=== PATIENT | male | born 1950 | race Caucasian/White ===

== ENCOUNTER 2020-04-04 11:52 | Inpatient (IN) | payer MEDICARE ==
[2020-04-04 14:32] VITALS: BMI 27.3
[2020-04-04] MEDS ORDERED: Communication Order-Pharmacy FS SCH (14:43)
--- NOTE | 2020-04-04 17:03 | RAD ---
Chest one view HISTORY: CHF. Chest pain. COMPARISON: 03/03/2020. FINDINGS: Cardiac silhouette is magnified and upper limits of normal in size. Pulmonary vasculature i s unremarkable. Mediastinum is midline with extensive overlying electronic monitoring equipment. No lobar consolidation or evidence of pneumothorax. Degenerative changes of the shoulders. IMPRESSION : No acute abnormalities are demonstrated.
--- NOTE | 2020-04-04 20:27 | CON ---
DATE OF CONSULTATION: HISTORY OF PRESENT ILLNESS: This is a 70-year-old gentleman with a history of hypertension followed by dr umana who began having some paroxysmal nocturnal dyspnea around Samson time and then noticed some swelling in his legs. He was seen by Dr. Umana. However, cardiac echo was done showing an ejection fraction of 10% to 15%. He has evaluation at that time proceeded after he had some Entresto and Coreg started as well as Lasix. He underwent cardiac catheterization today showing severe three-vessel coronary artery disease with an LVEDP of 9. The ejection fraction appeared to be in the 10% to 15% as well on catheterization with some basal wall function, but otherwise in no particular function in the remainder of the ventricle. PAST MEDICAL HISTORY: Negative for diabetes. Negative for dyslipidemia. He has no smoking history. He does have a family history of heart disease. PAST SURGICAL HISTORY: Includes bilateral chest tubes for pneumothoraces following an accident as a young man. 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 PHYSICAL EXAMINATION: GENERAL: He is alert, cooperative gentleman, heart rate 60 with a blood pressure of 100/60. NECK: Neck examination is without carotid bruits. LUNGS: Clear to auscultation anteriorly. CARDIAC: Reveals distant sounds with no murmurs. ABDOMEN: Soft and nontender. EXTREMITIES: He has trace ankle edema on the left with no pitting edema. He has palpable pedal pulses. PLAN: At this time, after reviewing his cardiac catheterization, he has potential targets of an LAD, ramus, OM and left PDA all of which have critical disease. The case was discussed with Dr. Cho. I have also had discussion with the patient, his , and we will proceed with intervention on Tuesday. Job ID: [id number] [facility]
[2020-04-04] MEDS: Carvedilol 3.125 MG TAB PO SCH (21:14)
[2020-04-05 07:55] LABS: ALT (SGPT) 8 U/L (8-55); AST (SGOT) 12 U/L (5-34); Albumin 3.4 g/dL (3.4-4.8); Alkaline Phosphatase 79 U/L (40-110); Bilirubin, Direct 0.3 mg/dL (0.1-0.3); Bilirubin, Total 0.8 mg/dL (0.2-1.2); Cardiac Risk 4.8 (Less than 4.5); Cholesterol 168 mg/dl (< 200 Desired); HDL Cholesterol 35 mg/dL (>60 Neg Risk); LDL Cholesterol, Calculated 115 mg/dL; Protein, Total 6.5 g/dL (5.8-8.1); Triglycerides 91 mg/dL (Less than 150)
[2020-04-05 08:03] LABS: Hemoglobin A1c 5.2 % (4.0-6.0)
[2020-04-05] MEDS: Aspirin 81 mg Enteric Coated Tablet PO SCH (08:32)
[2020-04-05] MEDS: Carvedilol 3.125 MG TAB PO SCH ×2 (08:34→21:32)
[2020-04-05] MEDS: Furosemide 40 MG TAB PO SCH (08:34)
[2020-04-05] MEDS: Potassium Chloride 10 MEQ TAB PO SCH (08:34)
[2020-04-05] MEDS ORDERED: FLU VACC QS2020-21(65YR UP)/PF 240 MCG/0.7 ML SYRINGE IM ONE (09:00)
--- NOTE | 2020-04-05 09:38 | PDOC.CONS ---
- Consultation Encounter Date: 04/05/20 The patient is a 70-year-old male who was recently diagnosed with heart failure with reduced action fraction. His EF was determined to be 10 to 15%. The patient's symptoms of dyspnea on exertion, orthopnea, and PND started late last year. He recently underwent cardiac catheterization which revealed severe triple- vessel disease. He is admitted to the hospital for scheduled CABG on Tuesday. This morning the patient is sitting in a chair and does not appear to be in any distress. He denied any chest pain, palpitations, shortness of breath, or dizziness. He was able to ambulate inside his room without difficulty. Extended Physical Exam - Physical Exam General Appearance: alert, no acute distress Eye: Bilateral: EOMI Neck: other (Supple) Respiratory: breath sounds clear CVS: regular rate & rhythm. negative: gallop, murmur, friction rub Skin: negative: cyanosis, pallor Extremities: normal inspection, normal ROM Neuro/Psych: oriented x3. negative: facial droop, weakness Hosp A/P (1) Coronary artery disease Code(s): I25.10 - ATHSCL HEART DISEASE OF [place] CORONARY ARTERY W/O ANG PCTRS Status: Acute (2) Heart failure with reduced ejection fraction Code(s): I50.20 - UNSPECIFIED SYSTOLIC (CONGESTIVE) HEART FAILURE Status: Acute - Plan Start aspirin 81 mg orally daily and atorvastatin 40 mg orally nightly. Nitroglycerin sublingual as needed for chest pain. Continue Coreg and Entresto. Enoxaparin for DVT prophylaxis. Check LFTs, hemoglobin A1c and lipid profile.
[2020-04-05] MEDS ORDERED: Nitroglycerin 0.4 MG TAB (25 Tab Bottle) SL PRN (09:48)
[2020-04-05] MEDS: Atorvastatin Calcium 40 MG TAB PO SCH (21:32)
[2020-04-06] MEDS: Potassium Chloride 10 MEQ TAB PO SCH (07:53)
[2020-04-06] MEDS: Carvedilol 3.125 MG TAB PO SCH ×2 (07:54→20:49)
[2020-04-06] MEDS: Aspirin 81 mg Enteric Coated Tablet PO SCH (07:54)
[2020-04-06] MEDS: Furosemide 40 MG TAB PO SCH (07:54)
--- NOTE | 2020-04-06 09:45 | PDOC.HOSPP ---
- Subjective Encounter Date: 04/06/20 Subjective: The patient denies chest pain, shortness of breath, palpitations, or syncope. - Objective Vital Signs & Weight: Vital Signs (12 hours) Temp Pulse Resp BP Pulse Ox 04/06/20 07:51 98.3 F 79 15 122/77 96 04/06/20 07:30 95 04/06/20 04:00 97.9 F 61 15 112/65 96 Weight Weight 205 lb I&O: 04/05/20 04/06/20 04/07/20 06:59 06:59 06:59 Intake Total 850 1200 240 Output Total 2400 425 1450 Balance -1550 775 -1210 Hospitalist ROS - Medication Medications: Active Medications Generic Name Dose Route Start Last Admin Trade Name Nuris PRN Reason Stop Dose Admin Aspirin 81 mg 04/05/20 09:00 04/06/20 07:54 Aspirin 81 Mg Enteric Coated Tablet PO 81 mg DAILY ALVAREZ Administration Atorvastatin Calcium 40 mg 04/05/20 21:00 04/05/20 21:32 Atorvastatin Calcium 40 Mg Tab PO Not Given HS ALVAREZ Carvedilol 3.125 mg 04/04/20 21:00 04/06/20 07:54 Carvedilol 3.125 Mg Tab PO 3.125 mg BID ALVAREZ Administration Furosemide 40 mg 04/05/20 09:00 04/06/20 07:54 Furosemide 40 Mg Tab PO 40 mg DAILY ALVAREZ Administration Potassium Chloride 10 meq 04/05/20 09:00 04/06/20 07:53 Potassium Chloride 10 Meq Tab PO 10 meq DAILY ALVAREZ Administration Sacubitril/Valsartan 0.5 tab 04/04/20 21:00 04/06/20 07:53 Sacubitril 24mg/Valsartan 26mg Tab PO 0.5 tab BID ALVAREZ Administration Hospitalist Exam Vitals: Vital Signs (12 hours) Temp Pulse Resp BP Pulse Ox 04/06/20 07:51 98.3 F 79 15 122/77 96 04/06/20 07:30 95 04/06/20 04:00 97.9 F 61 15 112/65 96 Weight Weight 205 lb General Appearance: awake alert ENT: normocephalic atraumatic Neck: supple Heart: RRR Respiratory: normal chest expansion, no tachypnea Extremities: no cyanosis, no clubbing Hosp A/P (1) Coronary artery disease Code(s): I25.10 - ATHSCL HEART DISEASE OF [place] CORONARY ARTERY W/O ANG PCTRS Status: Acute (2) Heart failure with reduced ejection fraction Code(s): I50.20 - UNSPECIFIED SYSTOLIC (CONGESTIVE) HEART FAILURE Status: Acute - Plan Continue aspirin 81 mg orally daily and atorvastatin 40 mg orally nightly. Nitroglycerin sublingual as needed for chest pain. Continue Coreg and Entresto. Enoxaparin for DVT prophylaxis. LFTs within normal limits. LDL cholesterol is above target. I have explained indication for atorvastatin to the patient.
--- NOTE | 2020-04-06 12:20 | PRG ---
DATE OF SERVICE: 04/06/2020 The patient has no complaints in the past 24 hours. His vital signs are stable on Entresto and Coreg with the blood pressure in the 120 range and the heart rate in the 70s. He reports no chest pain or dyspnea. He did refuse his Lipitor last night stating that no one discussed medicine changes with him. I have reviewed his current cardiac echo, which was read by Dr. Buchanan, and the ejection fraction appears to be about 20%, which is slightly better than what I would have guessed from looking at his cardiac catheterization. Plan tomorrow is 4-vessel bypass grafting if weather permitting and allowing all involved crew members to make it to the hospital, and I have discussed this with him. Job ID: [id number]
[2020-04-06] MEDS: Atorvastatin Calcium 40 MG TAB PO SCH (20:49)
[2020-04-07] MEDS ORDERED: Carvedilol 3.125 MG TAB ONE (05:42)
[2020-04-07] MEDS ORDERED: Albumin 5% 500 ML ONE (07:03)
[2020-04-07] MEDS ORDERED: Vecuronium 10 MG VIAL ONE ×3 (09:55→14:41)
[2020-04-07] MEDS ORDERED: Midazolam HCl 5 mg/5 ml Vial ONE (09:55)
[2020-04-07] MEDS ORDERED: Fentanyl 100 MCG/2 ML VIAL ONE ×2 (09:55→16:17)
[2020-04-07] MEDS ORDERED: Midazolam HCl 2 mg/2 ml Vial ONE (09:55)
[2020-04-07] MEDS ORDERED: Dexmedetomidine 200 MCG/2 ML VIAL ONE (09:55)
[2020-04-07] MEDS: Aspirin 81 mg Enteric Coated Tablet PO SCH (10:14)
[2020-04-07] MEDS: Furosemide 40 MG TAB PO SCH (10:14)
[2020-04-07] MEDS: Potassium Chloride 10 MEQ TAB PO SCH (10:14)
[2020-04-07] MEDS: Carvedilol 3.125 MG TAB PO SCH (10:15)
[2020-04-07] MEDS ORDERED: Levofloxacin 500 mg/D5W 100 ml Premix Bag ONE (10:49)
[2020-04-07] MEDS ORDERED: Clindamycin/D5W 900 mg/50 ml Premix Bag ONE (10:49)
[2020-04-07] MEDS ORDERED: Milrinone 10 MG/10 ML VIAL ONE (10:57)
--- NOTE | 2020-04-07 11:02 | PDOC.HOSPP ---
- Subjective Encounter Date: 04/07/20 Subjective: C/O some chest discomfort - Objective Vital Signs & Weight: Vital Signs (12 hours) Temp Pulse Resp BP Pulse Ox 04/07/20 08:00 97.9 F 67 16 117/74 95 Weight Weight 205 lb I&O: 04/06/20 04/07/20 04/08/20 06:59 06:59 06:59 Intake Total 1200 1440 Output Total 425 1450 Balance 775 -10 Hospitalist ROS - Medication Medications: Active Medications Generic Name Dose Route Start Last Admin Trade Name Freq PRN Reason Stop Dose Admin Aspirin 81 mg 04/05/20 09:00 04/07/20 10:14 Aspirin 81 Mg Enteric Coated Tablet PO Not Given DAILY ALVAREZ Atorvastatin Calcium 40 mg 04/05/20 21:00 04/06/20 20:49 Atorvastatin Calcium 40 Mg Tab PO 40 mg HS ALVAREZ Administration Carvedilol 3.125 mg 04/04/20 21:00 04/06/20 20:49 Carvedilol 3.125 Mg Tab PO 3.125 mg BID ALVAREZ Administration Furosemide 40 mg 04/05/20 09:00 04/07/20 10:14 Furosemide 40 Mg Tab PO Not Given DAILY [facility] Potassium Chloride 10 meq 04/05/20 09:00 04/07/20 10:14 Potassium Chloride 10 Meq Tab PO Not Given DAILY ALVAREZ Sacubitril/Valsartan 0.5 tab 04/04/20 21:00 04/07/20 10:14 Sacubitril 24mg/Valsartan 26mg Tab PO Not Given BID [facility] Hospitalist Exam Vitals: Vital Signs (12 hours) Temp Pulse Resp BP Pulse Ox 04/07/20 08:00 97.9 F 67 16 117/74 95 Weight Weight 205 lb General Appearance: awake alert ENT: normocephalic atraumatic Neck: supple Respiratory: normal chest expansion, no tachypnea Extremities: no cyanosis, no clubbing Hosp A/P (1) Coronary artery disease Code(s): I25.10 - ATHSCL HEART DISEASE OF [place] CORONARY ARTERY W/O ANG PCTRS Status: Acute (2) Heart failure with reduced ejection fraction Code(s): I50.20 - UNSPECIFIED SYSTOLIC (CONGESTIVE) HEART FAILURE Status: Acute - Plan Continue aspirin 81 mg orally daily and atorvastatin 40 mg orally nightly. Nitroglycerin sublingual as needed for chest pain. Continue Coreg and Entresto. Enoxaparin for DVT prophylaxis. LFTs within normal limits. LDL cholesterol is above target. I have explained indication for atorvastatin to the patient. Plan for CABG today.
[2020-04-07] MEDS ORDERED: PHENYLEPHRINE-NS 100 MCG/ML 10 ML SYRINGE ONE ×2 (12:55→14:41)
[2020-04-07] MEDS ORDERED: Calcium Chloride 1 GM/10 ML Abboject SYRINGE ONE (14:41)
[2020-04-07] MEDS ORDERED: Mannitol 12.5 GM/50 ML ONE (14:41)
[2020-04-07] MEDS ORDERED: Norepinephrine 4 MG/4 ML VIAL ONE (14:41)
[2020-04-07] MEDS ORDERED: Nitroglycerin 50 MG/250 ML BOT ONE (14:41)
[2020-04-07] MEDS ORDERED: Lidocaine 1% PF 5 ML VIAL ONE (14:41)
[2020-04-07] MEDS ORDERED: Ketorolac Tromethamine 30 MG/ML VIAL ONE (14:41)
[2020-04-07] MEDS ORDERED: Thrombin 5000 UNITS/5 ML VIAL ONE (14:41)
[2020-04-07] MEDS ORDERED: Cardioplegic Soln 1,000 ML BAG ONE (14:41)
[2020-04-07] MEDS ORDERED: Dexamethasone 20 MG/5 ML VIAL ONE (14:41)
[2020-04-07] MEDS ORDERED: Heparin 30,000 units/30 ml VIAL ONE (14:41)
[2020-04-07] MEDS ORDERED: Aminocaproic Acid 5 GM/20 ML VIAL ONE (14:41)
[2020-04-07] MEDS ORDERED: Ondansetron PF 4 MG/2 ML Vial ONE (14:41)
[2020-04-07] MEDS ORDERED: Papaverine 60 MG/2 ML VIAL ONE (14:41)
[2020-04-07] MEDS ORDERED: Glycopyrrolate 0.2 MG/ML 5 ML SYRINGE ONE (14:41)
[2020-04-07] MEDS ORDERED: Heparin 5,000 UNITS/ML VIAL ONE (14:41)
[2020-04-07] MEDS ORDERED: Sodium Bicarb 50 MEQ/50 ML Abboject 8.4% SYRINGE ONE (14:41)
[2020-04-07] MEDS ORDERED: Magnesium Sulfate 1 GM/2 ML VIAL ONE (14:41)
[2020-04-07] MEDS ORDERED: Lidocaine 2% PF 100 mg/5 ml Syringe ONE (14:41)
[2020-04-07] MEDS ORDERED: Potassium Chloride 60 MEQ/30 ML VIAL ONE (14:41)
[2020-04-07] MEDS ORDERED: Dextrose 5% in Water 1,000 ML IV PRN ×2 (15:00→16:45)
[2020-04-07] MEDS ORDERED: HUMULIN R 100 UNITS in Sodium Chloride 0.9% 100 ML IVPB SCH ×2 (15:00→16:45)
[2020-04-07] MEDS ORDERED: Dextrose 50% Abboject 50 ML SYRINGE SLOW IVP PRN ×2 (15:00→16:45)
[2020-04-07] MEDS ORDERED: Insulin Regular 300 UNITS/3 ML VIAL SC PRN (15:00)
[2020-04-07] MEDS ORDERED: hydrALAZINE 20 MG/ML VIAL SLOW IVP PRN ×2 (15:01→15:48)
[2020-04-07] MEDS ORDERED: Potassium Chloride 20 MEQ in Premix Bag 1 BAG IVPB PRN (15:03)
[2020-04-07] MEDS ORDERED: Ondansetron PF 4 MG/2 ML Vial IVP PRN ×2 (15:04→15:48)
[2020-04-07] MEDS ORDERED: Post-Op Insulin Drip Protocol IVPB ONE (15:48)
[2020-04-07] MEDS ORDERED: Mag-Al 1200 mg/1200 mg/30 ML UDCUP PO PRN (15:48)
[2020-04-07] MEDS ORDERED: niCARdipine 25 MG in Sodium Chloride 0.9% 250 ML 250 ML IVPB PRN (15:48)
[2020-04-07] MEDS ORDERED: Fentanyl 100 MCG/2 ML VIAL SLOW IVP PRN (15:48)
[2020-04-07] MEDS ORDERED: Promethazine HCl 25 MG/ML VIAL SLOW IVP PRN (15:48)
[2020-04-07] MEDS ORDERED: Morphine 2 MG/ML VIAL SLOW IVP PRN (15:48)
[2020-04-07] MEDS ORDERED: Hetastarch 6% 500 ML 500 ML IVPB PRN (15:48)
[2020-04-07] MEDS ORDERED: Nitroglycerin 50 MG/250 ML BOT 250 ML IVPB PRN (15:48)
[2020-04-07] MEDS ORDERED: Bisacodyl 5 MG TAB PO PRN (15:48)
[2020-04-07] MEDS ORDERED: Bisacodyl 10 MG SUPP PR PRN (15:48)
[2020-04-07] MEDS ORDERED: Guaifenesin DM 100-10/5 ML UDCUP PO PRN (15:48)
[2020-04-07] MEDS: Lactated Ringer's 1,000 ML IV SCH (15:50)
[2020-04-07 16:16] LABS: #Eosinphils 0.1 thou/uL (0.0-0.7); #Lymphocytes 0.7 thou/uL (1.20-3.40); #Neutrophils 15.7 thou/uL (1.40-6.50); %Basophils 0.1 % (0.0-1.0); %Eosinophils 0.7 % (0.0-10.0); %Lymphocytes 4.1 % (21.0-51.0); %Monocytes 5.7 % (0.0-10.0); %Neutrophils 89.4 % (42.0-75.0); Anion Gap 15 mmol/L (10-20); BUN (Urea Nitrogen) 27 mg/dL (8.4-25.7); Calc. Creatinine Clearance 70 mL/min (70-130); Calcium 8.1 mg/dL (7.8-10.44); Carbon Dioxide 21 mmol/L (23-31); Chloride 110 mmol/L (98-107); Glucose 168 mg/dL (83-110); Hemoglobin 12.5 g/dL (14.0-18.0); Mean Corpuscular HGB CONC 33.9 g/dL (32.0-36.0); Mean Corpuscular Hemoglobin 30.6 pg (27.0-31.0); Mean Corpuscular Volume 90.4 fL (78.0-98.0); Mean Platelet Volume 8.7 fL (7.4-10.4); Platelet Count 205 thou/uL (130-400); Potassium 4.4 mmol/L (3.5-5.1); RBC Distribution Width 12.1 % (11.5-14.5); Red Blood Cell (RBC) Count 4.07 mill/uL (4.70-6.10); Sodium 142 mmol/L (136-145); White Blood Cell (WBC) Count 17.5 thou/uL (4.8-10.8)
[2020-04-07] MEDS: Fentanyl 100 MCG/2 ML VIAL SLOW IVP PRN ×3 (16:18→19:57)
[2020-04-07 16:43] LABS: INR-International Normal Ratio 1.3; PTT 32.2 sec (22.9-36.1); Prothrombin Time 16.6 sec (12.0-14.7)
[2020-04-07] MEDS ORDERED: Magnesium 2 GM/50 ML 2 GM in Premix Bag 1 BAG IVPB SCH (16:45)
[2020-04-07] MEDS: Insulin Regular 300 UNITS/3 ML VIAL SC PRN ×3 (17:13→23:38)
[2020-04-07 17:14] LABS: Actual Bicarbonate (HCO3a) 21.7 mEq/L (22-28); Base Excess (BEa) -3.3 mEq/L (-2.0 to +3.0); CO2 Tension 38.9 mmHg (35.0-45.0); Calcium, Ionized (arterial) 1.13 mmol/L (1.12-1.30); Carboxyhemoglobin (COHb) 0.2 gm% (0.0-3.0); Hemoglobin (Hb) 12.4 g/dL (14.0-18.0); O2 Tension (PaO2), arterial 99.4 mmHg (> 70.0); Potassium - ABG Lab 4.22 mmol/L (3.70-5.30); pH, Arterial 7.37 (7.35-7.45)
[2020-04-07] MEDS: Ketorolac Tromethamine 30 MG/ML VIAL IVP SCH ×2 (17:15→23:03)
[2020-04-07] MEDS: Clindamycin/D5W 900 MG in Premix Bag 1 BAG IVPB SCH ×2 (17:15→23:02)
[2020-04-07 17:27] LABS: ALV-art Gradient 137.175 mmHg (0-20); Puncture Site Arterial Line
[2020-04-07] MEDS ORDERED: Milrinone Lactate/D5W 20 MG in Premix Bag 1 BAG IV SCH (18:00)
--- NOTE | 2020-04-07 18:06 | CON ---
DATE OF CONSULTATION: HISTORY OF PRESENT ILLNESS: Jordi Philip is a 70-year-old white male, who started to have episodes of paroxysmal nocturnal dyspnea around Samson time, as well as some peripheral edema. Echo showed ejection fraction of 10% to 15%. He was placed on carvedilol, Entresto, and furosemide. He then underwent cardiac catheterization which revealed severe three-vessel coronary artery disease. He is transferred from [facility] to [facility] for CABG. That was performed today and he is postop in the ICU at the present time. He is extubated and alert but drowsy. He apparently had CABG x4, however, I do not see any operative notes as to the location of bypasses. At the present time, the patient does complain of some chest discomfort. PAST MEDICAL HISTORY: Hypertension. OPERATIONS: Bilateral chest tubes for pneumothoraces after an accident as a young man. MEDICATIONS: 1. Entresto 24-26 1/2 tablet b.i.d. 2. Carvedilol 3.125 b.i.d. 3. Furosemide 40 daily. 4. Potassium 10 mEq daily. ALLERGIES: PENICILLIN. SOCIAL HISTORY: He does not smoke. 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 REVIEW OF SYSTEMS: The patient too drowsy to go through that at the present time. PHYSICAL EXAMINATION: VITAL SIGNS: Blood pressure 117/74, pulse 67. HEENT: PERRL. NECK: Supple. CHEST: Clear. CARDIAC: S1 and S2 normal without any S3, S4, or murmurs. ABDOMEN: Normal bowel sounds without tenderness or organomegaly. EXTREMITIES: Revealed trace pretibial edema. NEUROLOGICAL: Grossly intact except for the lethargy. LABORATORY DATA: Hemoglobin 12.5, hematocrit 36.8, white count 74562, platelets 205,000. PH 7.37, pCO2 of 38.9, PO2 of 99.4. Sodium 142, potassium 4.4, chloride 110, carbon dioxide 21, BUN 27, and creatinine 1.28. Blood test earlier in [place] revealed a cholesterol of 168, triglycerides 91, HDL 35, LDL 115. IMPRESSION: 1. Status post coronary artery bypass grafting x4. 2. Ischemic cardiomyopathy with ejection fraction of approximately 20%. 3. Hypertension. 4. Hypercholesterolemia. PLAN: The patient will need to be started on a statin drug. Also his carvedilol and Entresto will be gradually resumed as his blood pressure will allow. Job ID: [id number] [facility]
--- NOTE | 2020-04-07 18:51 | RAD ---
SUPINE PORTABLE CHEST: HISTORY: Postoperative sternotomy. COMPARISON: 04/04/2020 FINDINGS: Postop sternotomy changes are now noted. Sternotomy wires and drainage catheters are seen. A central line overlies the SVC. The lungs show opacification in the left lung base, consistent with left basil ar atelectasis or consolidation. The lung kim otherwise appear well aerated and clear. IMPRESSION: Postoperative changes. Atelectasis or consolidation in the left lung base. POS: AGW
[2020-04-07] MEDS: Famotidine/PF 20 mg/2ml Vial SLOW IVP SCH (19:57)
[2020-04-07] MEDS: Norepinephrine 8 MG/0.9% NS 250 ML IVPB PRN (20:54)
[2020-04-07 21:47] LABS: Hemoglobin 11.8 g/dL (14.0-18.0)
[2020-04-07 21:53] LABS: Potassium 4.2 mmol/L (3.5-5.1)
[2020-04-08] MEDS: Acetaminophen 325 MG TAB PO PRN (02:12)
[2020-04-08] MEDS: HYDROcodone/Acetaminophen 5/325 mg Tablet PO PRN ×4 (02:13→20:11)
[2020-04-08] MEDS: Fentanyl 100 MCG/2 ML VIAL SLOW IVP PRN ×2 (03:05→06:17)
[2020-04-08] MEDS: Insulin Regular 300 UNITS/3 ML VIAL SC PRN ×4 (03:41→20:40)
[2020-04-08 04:32] LABS: #Lymphocytes 0.8 thou/uL (1.20-3.40); #Monocytes 1.5 thou/uL (0.11-0.59); #Neutrophils 13.1 thou/uL (1.40-6.50); %Lymphocytes 4.9 % (21.0-51.0); Hemoglobin 10.9 g/dL (14.0-18.0); Mean Corpuscular HGB CONC 33.7 g/dL (32.0-36.0); Mean Corpuscular Hemoglobin 29.8 pg (27.0-31.0); Mean Corpuscular Volume 88.5 fL (78.0-98.0); Mean Platelet Volume 8.9 fL (7.4-10.4); Platelet Count 236 thou/uL (130-400); Red Blood Cell (RBC) Count 3.65 mill/uL (4.70-6.10); White Blood Cell (WBC) Count 15.4 thou/uL (4.8-10.8)
[2020-04-08 04:51] LABS: Anion Gap 14 mmol/L (10-20); BUN (Urea Nitrogen) 31 mg/dL (8.4-25.7); Calc. Creatinine Clearance 56 mL/min (70-130); Calcium 8.4 mg/dL (7.8-10.44); Carbon Dioxide 21 mmol/L (23-31); Chloride 110 mmol/L (98-107); Glucose 134 mg/dL (83-110); Sodium 141 mmol/L (136-145)
[2020-04-08] MEDS: Potassium Chloride 20 MEQ/100 ML PREMIX BAG IVPB PRN (04:57)
[2020-04-08] MEDS: Lactated Ringer's 1,000 ML IV SCH ×2 (04:58→20:37)
[2020-04-08] MEDS: Ketorolac Tromethamine 30 MG/ML VIAL IVP SCH (05:36)
[2020-04-08] MEDS: Clindamycin/D5W 900 MG in Premix Bag 1 BAG IVPB SCH ×2 (05:36→12:03)
--- NOTE | 2020-04-08 07:34 | RAD ---
XR Chest 1 View Portable HISTORY: Postop CABG. COMPARISON: 04/07/2020 exam FINDINGS: Heart size is enlarged. Postop sternotomy changes. Right-sided subclavian line is unchanged in position. Left-sided and midline chest tubes unchanged. Bibasilar atelectasis. Right chest tube unchanged. IMPRESSION: Stable exam.
--- NOTE | 2020-04-08 07:57 | PRG ---
DATE OF SERVICE: 04/08/2020 The patient has remained stable overnight, afebrile. His heart rate is about 88 to 90, sinus rhythm on 16 mcg of Levophed and low-dose milrinone. His blood pressure currently is reading 113 with an excellent upstroke, good dicrotic notch on the arterial waveform. He is awake, alert, some soreness, but otherwise comfortable. His lungs are clear. His cardiac exam is without murmurs. Plan at this time is to taper and discontinue the milrinone and as tolerated taper the Levophed. May switch him to IV dobutamine at some point if his Levophed requirements are minimal. His chest x-ray looks good. His laboratory values show slight increase in his creatinine from 1.2 to 1.6, and I have stopped his Toradol. We will keep him in the ICU today. Job ID: [id number]
[2020-04-08] MEDS: Norepinephrine 8 MG/0.9% NS 250 ML IVPB PRN (08:01)
[2020-04-08] MEDS: Famotidine/PF 20 mg/2ml Vial SLOW IVP SCH ×2 (09:09→20:13)
[2020-04-08] MEDS: Aspirin Chewable 81 MG TAB PO SCH (09:09)
[2020-04-08] MEDS ORDERED: DOBUTamine 500 mg/250 ml 500 MG in Premix Bag 1 BAG IVPB SCH (14:00)
--- NOTE | 2020-04-08 17:53 | PDOC.HOSPP ---
- Subjective Encounter Date: 04/08/20 Encounter Time: 11:00 Subjective: Patient seen and examined for medical management. Denies any new complaints. Mild discomfort over the surgical site. No palpitations or syncope reported. On low-dose pressors. - Objective Vital Signs & Weight: Vital Signs (12 hours) Temp Pulse Ox 04/08/20 16:00 98.7 F 04/08/20 12:00 97.8 F 04/08/20 08:00 98.9 F 98 Weight Weight 204 lb 9.423 oz Most Recent Monitor Data Heart Rate from ECG 96 NIBP 129/75 NIBP BP-Mean 93 Respiration from ECG 17 SpO2 93 I&O: 04/07/20 04/08/20 04/09/20 06:59 06:59 06:59 Intake Total 1440 2435.7 1760 Output Total 1450 3305 620 Balance -10 -869.3 1140 Result Diagrams: 04/08/20 03:31 04/08/20 03:31 Additional Labs: Accuchecks 04/08/20 04/08/20 04/08/20 12:19 07:55 03:39 POC Glucose 138 H 145 H 127 H 04/07/20 04/07/20 04/07/20 23:38 20:19 17:00 POC Glucose 136 H 150 H 155 H Abnormal Lab Results - Last 48 hrs 04/07/20 15:38: Chloride 110 H, Carbon Dioxide 21 L, BUN 27 H 04/07/20 15:38: WBC 17.5 H, RBC 4.07 L, Hgb 12.5 L, Hct 36.8 L, Neutrophils % 89.4 H, Lymphocytes % 4.1 L, Neutrophils # 15.7 H, Lymphocytes # 0.7 L, Monocytes # 1.0 H 04/07/20 15:38: PT 16.6 H 04/07/20 15:51: Bicarbonate Actual 21.7 L, ABG pO2 99.4 H, ABG O2 Content 17.0 L, ABG Base Excess -3.3 L, ABG Hematocrit 36.0 L, ABG Hemoglobin 12.4 L, A-a O2 Gradient 137.175 H, Chloride 112 H 04/07/20 21:31: Hgb 11.8 L, Hct 35.4 L 04/08/20 03:31: Chloride 110 H, Carbon Dioxide 21 L, BUN 31 H, Creatinine 1.58 H 04/08/20 03:31: WBC 15.4 H, RBC 3.65 L, Hgb 10.9 L, Hct 32.3 L, Neutrophils % 85.0 H, Lymphocytes % 4.9 L, Neutrophils # 13.1 H, Lymphocytes # 0.8 L, Monocytes # 1.5 H EKG Reviewed by me: Yes (Sinus rhythm on telemetry) Hospitalist ROS - Review of Systems Respiratory: denies: cough, dry, shortness of breath, hemoptysis, SOB with excertion, pleuritic pain, sputum, wheezing, other Cardiovascular: denies: chest pain, palpitations, orthopnea, paroxysmal noc. dyspnea, edema, light headedness, other - Medication Medications: Active Medications Generic Name Dose Route Start Last Admin Trade Name Freq PRN Reason Stop Dose Admin Acetaminophen 650 mg 04/07/20 15:48 04/08/20 02:12 Acetaminophen 325 Mg Tab PO 650 mg Q6H PRN Administration Headache/Fever Or Mild Pain Hydrocodone Bitart/Acetaminophen 1 tab 04/07/20 15:48 04/08/20 02:13 Hydrocodone/Acetaminophen 5/325 Mg Tablet PO 1 tab Q4H PRN Administration Moderate Pain (4-6) Hydrocodone Bitart/Acetaminophen 2 tab 04/07/20 15:48 04/08/20 12:03 Hydrocodone/Acetaminophen 5/325 Mg Tablet PO 2 tab Q4H PRN Administration Severe Pain (7-10) Aspirin 81 mg 04/08/20 09:00 04/08/20 09:09 Aspirin Chewable 81 Mg Tab PO 81 mg DAILY ALVAREZ Administration Famotidine 20 mg 04/07/20 21:00 04/08/20 09:09 Famotidine/Pf 20 Mg/2ml Vial SLOW IVP 20 mg Q12HR ALVAREZ Administration Fentanyl 25 mcg 04/07/20 15:48 04/08/20 06:17 Fentanyl 100 Mcg/2 Ml Vial SLOW IVP 04/09/20 15:03 25 mcg Q2H PRN Administration Moderate Pain (4-6) Norepinephrine Bitartrate 250 mls @ 0 mls/hr 04/07/20 15:48 04/08/20 08:01 Levophed IVPB 250 mls PRN PRN Administration To maintain SBP > 90 mmHG Protocol Titrate Lactated Ringer's 1,000 mls @ 75 mls/hr 04/07/20 15:48 04/08/20 04:58 Lactated Ringer's IV 1,000 mls .[id number] ALVAREZ Administration Milrinone Lactate/Dextrose 20 100 mls @ 10.429 mls/hr 04/07/20 18:00 04/07/20 20:54 mg/ Device IV 100 mls INF ALVAREZ Administration Protocol 0.375 MCG/KG/MIN Dobutamine HCl/Dextrose 500 mg 250 mls @ 0 mls/hr 04/08/20 14:00 04/08/20 15:46 / Device IVPB 250 mls INF ALVAREZ Administration Protocol As Directed Insulin Human Regular 0 units 04/07/20 16:45 04/08/20 12:19 Insulin Regular 300 Units/3 Ml Vial SC 2 units Q4H PRN Administration POST OP SLIDING SCALE Protocol Morphine Sulfate 2 mg 04/07/20 15:48 04/07/20 23:24 Morphine 2 Mg/Ml Vial SLOW IVP 2 mg Q15MIN PRN Administration Severe Pain (7-10) Ondansetron HCl 4 mg 04/07/20 15:48 04/07/20 19:57 Ondansetron Pf 4 Mg/2 Ml Vial IVP 4 mg Q6H PRN Administration Nausea/Vomiting Potassium Chloride 20 meq 04/07/20 15:48 04/08/20 04:57 Potassium Chloride 20 Meq/100 Ml Premix Bag IVPB 20 meq PRN PRN Administration K level </= 4.0 Hospitalist Exam Vitals: Vital Signs (12 hours) Temp Pulse Ox 04/08/20 16:00 98.7 F 04/08/20 12:00 97.8 F 04/08/20 08:00 98.9 F 98 Weight Weight 204 lb 9.423 oz Most Recent Monitor Data Heart Rate from ECG 96 NIBP 129/75 NIBP BP-Mean 93 Respiration from ECG 17 SpO2 93 General Appearance: awake alert Heart: RRR, no gallops Respiratory: no wheezes Respiratory - other findings: Decreased air entry at bases Gastrointestinal: soft, non-distended Extremities: no cyanosis Neurological: no new deficit Hosp A/P (1) Coronary artery disease Code(s): I25.10 - ATHSCL HEART DISEASE OF [place] CORONARY ARTERY W/O ANG PCTRS Status: Acute (2) Hypertension Code(s): I10 - ESSENTIAL (PRIMARY) HYPERTENSION Status: Chronic (3) Hyperlipidemia Code(s): E78.5 - HYPERLIPIDEMIA, UNSPECIFIED Status: Chronic (4) Heart failure with reduced ejection fraction Code(s): I50.20 - UNSPECIFIED SYSTOLIC (CONGESTIVE) HEART FAILURE Status: Acute (5) Hypomagnesemia Code(s): E83.42 - HYPOMAGNESEMIA Status: Acute - Plan plan discussed w/ family, DVT proph w/SCDs Continue supportive care. Wean pressors as tolerated. Continue post CABG care. Recheck labs in a.m. Chest x-ray was negative for acute findings. Toradol has been discontinued due to elevated creatinine. Continue CCU monitoring per CV. Continue aspirin
[2020-04-09] MEDS: Insulin Regular 300 UNITS/3 ML VIAL SC PRN (00:46)
[2020-04-09] MEDS: HYDROcodone/Acetaminophen 5/325 mg Tablet PO PRN (03:51)
[2020-04-09 04:18] LABS: Anion Gap 10 mmol/L (10-20); BUN (Urea Nitrogen) 28 mg/dL (8.4-25.7); Calc. Creatinine Clearance 64 mL/min (70-130); Calcium 7.7 mg/dL (7.8-10.44); Carbon Dioxide 25 mmol/L (23-31); Chloride 107 mmol/L (98-107); Glucose 112 mg/dL (83-110); Potassium 3.8 mmol/L (3.5-5.1); Sodium 138 mmol/L (136-145)
[2020-04-09 04:44] LABS: #Eosinphils 0.1 thou/uL (0.0-0.7); #Monocytes 0.8 thou/uL (0.11-0.59); %Basophils 0.1 % (0.0-1.0); %Eosinophils 1.4 % (0.0-10.0); %Lymphocytes 11.6 % (21.0-51.0); %Monocytes 8.5 % (0.0-10.0); %Neutrophils 78.4 % (42.0-75.0); Hemoglobin 9.1 g/dL (14.0-18.0); Mean Corpuscular HGB CONC 35.6 g/dL (32.0-36.0); Mean Corpuscular Hemoglobin 32.4 pg (27.0-31.0); Mean Platelet Volume 8.4 fL (7.4-10.4); Platelet Count 119 thou/uL (130-400); Platelet Morphology Comment Appears Decreased; RBC Distribution Width 12.1 % (11.5-14.5); White Blood Cell (WBC) Count 8.9 thou/uL (4.8-10.8)
[2020-04-09] MEDS: Potassium Chloride 20 MEQ/100 ML PREMIX BAG IVPB PRN (05:23)
[2020-04-09] MEDS ORDERED: DOBUTamine 500 mg/250 ml 500 MG in Premix Bag 1 BAG IVPB SCH (06:56)
--- NOTE | 2020-04-09 07:21 | PRG ---
DATE OF SERVICE: 04/09/2020 The patient is afebrile. Blood pressure 110 to 140 on dobutamine 3 mcg/kg/minute. His chest tube is at 740 mL total. His chest x-ray shows perhaps a small left effusion. His sugars have been reasonably good and his creatinine is decreased to 1.38 after rising to 1.58 immediately after surgery. He is awake and alert with no complaints. His lungs, he has a few crackles at his bases. Chest incision fine. He does have some mild swelling in his feet. Plan will be to transfer him today to the floor, possibly remove his chest tubes later depending on his chest tube output and then begin diuresis. Coreg and Entresto can be considered depending on his blood pressure. Job ID: [id number]
[2020-04-09] MEDS ORDERED: Furosemide 20 MG/2 ML VIAL SLOW IVP SCH (07:34)
[2020-04-09] MEDS ORDERED: Nitroglycerin 0.4 MG TAB (25 Tab Bottle) SL PRN (07:34)
--- NOTE | 2020-04-09 07:47 | RAD ---
Portable frontal chest radiograph: 04/09/2020 COMPARISON: 04/08/2020 HISTORY: Evaluate chest following open heart surgery FINDINGS: Stable midline sternotomy wires, right-sided vascular catheter, mediastinal drainage cathet er, and right basilar chest tube. Drainage catheter overlies the left lung apex as well. Stable enlargement of the cardiac silhouette. Mild pulmonary vascular congestion. Dense opacity in the left base obscures the left hemidiaphragm and left heart border suggesting left lower lobe consolidation/collapse and/or small volume left pleural effusion. IMPRESSION: No significant interval change.
[2020-04-09] MEDS ORDERED: Potassium Chloride 20 MEQ TAB PO SCH (08:00)
[2020-04-09] MEDS: Aspirin Chewable 81 MG TAB PO SCH (08:23)
[2020-04-09] MEDS: Furosemide 40 MG TAB PO SCH ×2 (08:23→21:20)
[2020-04-09] MEDS: Famotidine 20 MG TAB PO SCH ×2 (08:23→21:19)
[2020-04-09] MEDS: Carvedilol 3.125 MG TAB PO SCH ×2 (08:23→16:28)
--- NOTE | 2020-04-09 18:29 | EKG ---
Test Reason : Blood Pressure : / mmHG Vent. Rate : 062 BPM Atrial Rate : 062 BPM P-R Int : 230 ms QRS Dur : 118 ms QT Int : 508 ms P-R-T Axes : 040 -52 088 degrees QTc Int : 515 ms Sinus rhythm with 1st degree A-V block Possible Left atrial enlargement Left anterior fascicular block Inferior infarct , age undetermined Anterolateral infarct , age undetermined Prolonged QT Abnormal ECG No previous ECGs available Confirmed by MARKOS BERNARDO, DR. Flores ([id number]) on 04/09/2020 6:29:01 PM Referred By: YOANA Confirmed By:DR. Sandra BURROWS MD
--- NOTE | 2020-04-09 18:29 | EKG ---
Test Reason : CP Blood Pressure : / mmHG Vent. Rate : 106 BPM Atrial Rate : 052 BPM P-R Int : 000 ms QRS Dur : 176 ms QT Int : 446 ms P-R-T Axes : 000 216 040 degrees QTc Int : 592 ms Wide QRS rhythm Right bundle branch block Anteroseptal infarct , age undetermined Abnormal ECG When compared with ECG of 07-APR-2020 17:10, (Unconfirmed) Wide QRS rhythm has replaced Sinus rhythm Vent. rate has increased BY 44 BPM Confirmed by MARKOS BERNARDO, DR. Flores ([id number]) on 04/09/2020 6:29:13 PM Referred By: YOANA Confirmed By:DR. Sandra BURROWS MD
--- NOTE | 2020-04-09 18:42 | PDOC.HOSPP ---
- Subjective Encounter Date: 04/09/20 Encounter Time: 08:30 Subjective: Patient seen and examined for medical management. Denies any chest pain or shortness of breath. Symptomatically feels better. On dobutamine drip - Objective Vital Signs & Weight: Vital Signs (12 hours) Temp Pulse Resp BP Pulse Ox 04/09/20 15:50 98.5 F 84 18 116/71 100 04/09/20 14:41 98.2 F 91 18 132/68 100 04/09/20 13:00 78 18 114/76 97 04/09/20 12:00 98.7 F 79 16 117/72 98 04/09/20 11:00 80 17 135/87 98 04/09/20 08:00 98.8 F 100 Weight Weight 211 lb 13.828 oz Most Recent Monitor Data Heart Rate from ECG 77 NIBP 124/83 NIBP BP-Mean 96 Respiration from ECG 17 SpO2 100 I&O: 04/08/20 04/09/20 04/10/20 06:59 06:59 06:59 Intake Total 2435.7 4269 1120 Output Total 3305 1725 1840 Balance -869.3 2544 -720 Result Diagrams: 04/09/20 03:20 04/09/20 03:20 Additional Labs: Accuchecks 04/09/20 04/09/20 04/08/20 03:41 00:27 20:37 POC Glucose 109 H 127 H 139 H 04/08/20 16:05 POC Glucose 98 Radiology Reviewed by me: Yes (Chest x-rayno new infiltrate) EKG Reviewed by me: Yes (Sinus rhythm on telemetry) Hospitalist ROS - Review of Systems Cardiovascular: denies: chest pain, palpitations, orthopnea, paroxysmal noc. dyspnea, edema, light headedness, other Gastrointestinal: denies: nausea, vomiting, abdominal pain, diarrhea, constipation, melena, hematochezia, other - Medication Medications: Active Medications Generic Name Dose Route Start Last Admin Trade Name Freq PRN Reason Stop Dose Admin Acetaminophen 650 mg 04/07/20 15:48 04/08/20 02:12 Acetaminophen 325 Mg Tab PO 650 mg Q6H PRN Administration Headache/Fever Or Mild Pain Hydrocodone Bitart/Acetaminophen 1 tab 04/07/20 15:48 04/09/20 03:51 Hydrocodone/Acetaminophen 5/325 Mg Tablet PO 1 tab Q4H PRN Administration Moderate Pain (4-6) Hydrocodone Bitart/Acetaminophen 2 tab 04/07/20 15:48 04/08/20 20:11 Hydrocodone/Acetaminophen 5/325 Mg Tablet PO 2 tab Q4H PRN Administration Severe Pain (7-10) Aspirin 81 mg 04/08/20 09:00 04/09/20 08:23 Aspirin Chewable 81 Mg Tab PO 81 mg DAILY ALVAREZ Administration Carvedilol 3.125 mg 04/09/20 08:00 04/09/20 16:28 Carvedilol 3.125 Mg Tab PO 3.125 mg BID-WM ALVAREZ Administration Famotidine 20 mg 04/09/20 09:00 04/09/20 08:23 Famotidine 20 Mg Tab PO 20 mg BID ALVAREZ Administration Furosemide 40 mg 04/09/20 09:00 04/09/20 08:23 Furosemide 40 Mg Tab PO 40 mg BID ALVAREZ Administration Norepinephrine Bitartrate 250 mls @ 0 mls/hr 04/07/20 15:48 04/08/20 08:01 Levophed IVPB 250 mls PRN PRN Administration To maintain SBP > 90 mmHG Protocol Titrate Ondansetron HCl 4 mg 04/07/20 15:48 04/07/20 19:57 Ondansetron Pf 4 Mg/2 Ml Vial IVP 4 mg Q6H PRN Administration Nausea/Vomiting Potassium Chloride 20 meq 04/09/20 08:00 04/09/20 08:23 Potassium Chloride 20 Meq Tab PO 20 meq [facility] Administration Hospitalist Exam Vitals: Vital Signs (12 hours) Temp Pulse Resp BP Pulse Ox 04/09/20 15:50 98.5 F 84 18 116/71 100 04/09/20 14:41 98.2 F 91 18 132/68 100 04/09/20 13:00 78 18 114/76 97 04/09/20 12:00 98.7 F 79 16 117/72 98 04/09/20 11:00 80 17 135/87 98 04/09/20 08:00 98.8 F 100 Weight Weight 211 lb 13.828 oz Most Recent Monitor Data Heart Rate from ECG 77 NIBP 124/83 NIBP BP-Mean 96 Respiration from ECG 17 SpO2 100 General Appearance: awake alert Neck: supple, no JVD Heart: RRR, no gallops Respiratory: no wheezes, no ronchi Gastrointestinal: soft, non-distended Extremities: no cyanosis Neurological: no new deficit Hosp A/P (1) Coronary artery disease Code(s): I25.10 - ATHSCL HEART DISEASE OF [place] CORONARY ARTERY W/O ANG PCTRS Status: Acute (2) Hypertension Code(s): I10 - ESSENTIAL (PRIMARY) HYPERTENSION Status: Chronic (3) Hyperlipidemia Code(s): E78.5 - HYPERLIPIDEMIA, UNSPECIFIED Status: Chronic (4) Heart failure with reduced ejection fraction Code(s): I50.20 - UNSPECIFIED SYSTOLIC (CONGESTIVE) HEART FAILURE Status: Acute (5) Hypomagnesemia Code(s): E83.42 - HYPOMAGNESEMIA Status: Acute - Plan DVT proph w/SCDs Coronary artery disease status post CABG Continue postoperative care. Continue aspirin with statins. Continue low-dose Coreg with holding parameters Chronic systolic heart failure due to ischemic cardiomyopathy Patient on dobutamine drip. Continue Coreg. Continue diuretics. Monitor electrolytes. Not on NIKO inhibitor or ARB due to relative hypotension Hyperlipidemia Continue statins Hypertension Plan as above
[2020-04-09] MEDS: Atorvastatin Calcium 20 MG TAB PO SCH (21:20)
[2020-04-09] MEDS ORDERED: diphenhydrAMINE 50 MG/ML VIAL IVP SCH (23:45)
[2020-04-10] MEDS: Cepastat Lozenges 1 LOZ PO PRN ×2 (00:11→16:59)
[2020-04-10] MEDS: HYDROcodone/Acetaminophen 5/325 mg Tablet PO PRN (01:28)
[2020-04-10 04:36] LABS: #Eosinphils 0.2 thou/uL (0.0-0.7); #Lymphocytes 1.1 thou/uL (1.20-3.40); #Monocytes 0.9 thou/uL (0.11-0.59); #Neutrophils 8.4 thou/uL (1.40-6.50); %Basophils 0.1 % (0.0-1.0); %Eosinophils 2.1 % (0.0-10.0); %Lymphocytes 10.6 % (21.0-51.0); %Monocytes 8.5 % (0.0-10.0); %Neutrophils 78.6 % (42.0-75.0); Hemoglobin 9.8 g/dL (14.0-18.0); Mean Corpuscular HGB CONC 33.6 g/dL (32.0-36.0); Mean Corpuscular Hemoglobin 29.9 pg (27.0-31.0); Mean Corpuscular Volume 89.1 fL (78.0-98.0); Mean Platelet Volume 8.9 fL (7.4-10.4); Platelet Count 161 thou/uL (130-400); RBC Distribution Width 12.1 % (11.5-14.5); Red Blood Cell (RBC) Count 3.28 mill/uL (4.70-6.10); White Blood Cell (WBC) Count 10.7 thou/uL (4.8-10.8)
[2020-04-10 04:54] LABS: Anion Gap 9 mmol/L (10-20); BUN (Urea Nitrogen) 22 mg/dL (8.4-25.7); Calc. Creatinine Clearance 73 mL/min (70-130); Calcium 7.9 mg/dL (7.8-10.44); Carbon Dioxide 27 mmol/L (23-31); Chloride 102 mmol/L (98-107); Glucose 106 mg/dL (83-110); Potassium 3.3 mmol/L (3.5-5.1); Sodium 135 mmol/L (136-145)
[2020-04-10] MEDS ORDERED: Potassium Chloride 20 MEQ TAB PO SCH (06:15)
--- NOTE | 2020-04-10 07:11 | PRG ---
DATE OF SERVICE: 04/10/2020 The patient is now postoperative day #3 following coronary bypass grafting. His blood pressure has been variable, but greater than 100. His heart rate has been in the mid 80s. He remains on dobutamine 2 mcg/kg/minute with a recorded weight of 216 compared to about 203 on admission. Laboratory values; his hemoglobin is stable at 9.8. His creatinine is stable at 1.26 with a BUN of 22. His I's and O's yesterday he had slightly more out than in, but not by much and he did receive IV Lasix yesterday. His potassium this morning is 3.3, and I will dose him with an extra potassium and increase his daily amount. Overnight, he complained of a swollen uvula and was seen by a hospital PA and given some Benadryl. On examination today, I can see about half of his uvula and it looks slightly injected, but not swollen. He has no respiratory distress. His lungs are clear to auscultation anteriorly. His chest dressing is dry. His Cooley was removed last night. Plan today was to add some Zaroxolyn to assist with his diuresis, additional potassium, and continue with rehab. We will stop his dobutamine later this afternoon. Job ID: [id number]
[2020-04-10] MEDS ORDERED: Metolazone 5 MG TAB PO SCH (09:00)
[2020-04-10] MEDS: Famotidine 20 MG TAB PO SCH ×2 (09:40→20:41)
[2020-04-10] MEDS: Potassium Chloride 20 MEQ TAB PO SCH ×2 (09:40→16:59)
[2020-04-10] MEDS: Aspirin Chewable 81 MG TAB PO SCH (09:40)
[2020-04-10] MEDS: Furosemide 40 MG TAB PO SCH ×2 (09:40→20:41)
[2020-04-10] MEDS: Carvedilol 3.125 MG TAB PO SCH ×2 (09:40→16:59)
--- NOTE | 2020-04-10 17:46 | PDOC.HOSPP ---
- Subjective Encounter Date: 04/10/20 Encounter Time: 10:30 Subjective: Patient seen and examined for medical management. Sitting on the chair. No chest pain or palpitations - Objective Vital Signs & Weight: Vital Signs (12 hours) Temp Pulse Pulse Pulse Resp BP BP 04/10/20 17:05 80 04/10/20 16:00 98.4 F 80 20 04/10/20 13:12 87 87 140/79 117/53 L 04/10/20 12:00 98.9 F 81 17 04/10/20 10:24 80 84 110/59 L 149/74 H 04/10/20 08:20 98.1 F 100 17 BP BP Pulse Ox 04/10/20 17:05 123/72 04/10/20 16:00 120/66 94 L 04/10/20 13:12 04/10/20 12:00 101/59 L 94 L 04/10/20 10:24 04/10/20 08:20 107/62 95 Weight Weight 216 lb Most Recent Monitor Data Heart Rate from ECG 77 NIBP 124/83 NIBP BP-Mean 96 Respiration from ECG 17 SpO2 100 I&O: 04/09/20 04/10/20 04/11/20 06:59 06:59 06:59 Intake Total 4269 1535 Output Total 1725 1890 Balance 2544 -355 Result Diagrams: 04/10/20 03:53 04/10/20 03:53 Additional Labs: Abnormal Lab Results - Last 48 hrs 04/05/20 06:01: Crossmatch See Detail 04/09/20 03:20: BUN 28 H, Creatinine 1.38 H, Calcium 7.7 L 04/09/20 03:20: RBC 2.80 L, Hgb 9.1 L, Hct 25.5 L, MCH 32.4 H, Plt Count 119 L, Neutrophils % 78.4 H, Lymphocytes % 11.6 L, Neutrophils # 7.0 H, Lymphocytes # 1.0 L, Monocytes # 0.8 H, Plt Morphology Comment Appears Decreased L 04/10/20 03:53: Sodium 135 L, Potassium 3.3 L, Anion Gap 9 L 04/10/20 03:53: RBC 3.28 L, Hgb 9.8 L, Hct 29.2 L, Neutrophils % 78.6 H, Lymphocytes % 10.6 L, Neutrophils # 8.4 H, Lymphocytes # 1.1 L, Monocytes # 0.9 H EKG Reviewed by me: Yes (Sinus rhythm on telemetry) Hospitalist ROS - Review of Systems Cardiovascular: denies: chest pain, palpitations, orthopnea, paroxysmal noc. dyspnea, edema, light headedness, other Gastrointestinal: denies: nausea, vomiting, abdominal pain, diarrhea, constipation, melena, hematochezia, other - Medication Medications: Active Medications Generic Name Dose Route Start Last Admin Trade Name Freq PRN Reason Stop Dose Admin Acetaminophen 650 mg 04/07/20 15:48 04/08/20 02:12 Acetaminophen 325 Mg Tab PO 650 mg Q6H PRN Administration Headache/Fever Or Mild Pain Hydrocodone Bitart/Acetaminophen 1 tab 04/07/20 15:48 04/10/20 01:28 Hydrocodone/Acetaminophen 5/325 Mg Tablet PO 1 tab Q4H PRN Administration Moderate Pain (4-6) Hydrocodone Bitart/Acetaminophen 2 tab 04/07/20 15:48 04/08/20 20:11 Hydrocodone/Acetaminophen 5/325 Mg Tablet PO 2 tab Q4H PRN Administration Severe Pain (7-10) Aspirin 81 mg 04/08/20 09:00 04/10/20 09:40 Aspirin Chewable 81 Mg Tab PO 81 mg DAILY ALVAREZ Administration Atorvastatin Calcium 20 mg 04/09/20 21:00 04/09/20 21:20 Atorvastatin Calcium 20 Mg Tab PO 20 mg HS ALVAREZ Administration Carvedilol 3.125 mg 04/09/20 08:00 04/10/20 16:59 Carvedilol 3.125 Mg Tab PO 3.125 mg BID- ALVAREZ Administration Famotidine 20 mg 04/09/20 09:00 04/10/20 09:40 Famotidine 20 Mg Tab PO 20 mg BID ALVAREZ Administration Furosemide 40 mg 04/09/20 09:00 04/10/20 09:40 Furosemide 40 Mg Tab PO 40 mg BID ALVAREZ Administration Norepinephrine Bitartrate 250 mls @ 0 mls/hr 04/07/20 15:48 04/08/20 08:01 Levophed IVPB 250 mls PRN PRN Administration To maintain SBP > 90 mmHG Protocol Titrate Ondansetron HCl 4 mg 04/07/20 15:48 04/07/20 19:57 Ondansetron Pf 4 Mg/2 Ml Vial IVP 4 mg Q6H PRN Administration Nausea/Vomiting Potassium Chloride 20 meq 04/10/20 08:00 04/10/20 16:59 Potassium Chloride 20 Meq Tab PO 20 meq BID-WM ALVAREZ Administration Throat Lozenges 1 sanju 04/09/20 23:34 04/10/20 16:59 Cepastat Lozenges 1 Sanju PO 1 sanju Q2H PRN Administration Sore Throat Hospitalist Exam Vitals: Vital Signs (12 hours) Temp Pulse Pulse Pulse Resp BP BP 04/10/20 17:05 80 04/10/20 16:00 98.4 F 80 20 04/10/20 13:12 87 87 140/79 117/53 L 04/10/20 12:00 98.9 F 81 17 04/10/20 10:24 80 84 110/59 L 149/74 H 04/10/20 08:20 98.1 F 100 17 BP BP Pulse Ox 04/10/20 17:05 123/72 04/10/20 16:00 120/66 94 L 04/10/20 13:12 04/10/20 12:00 101/59 L 94 L 04/10/20 10:24 04/10/20 08:20 107/62 95 Weight Weight 216 lb Most Recent Monitor Data Heart Rate from ECG 77 NIBP 124/83 NIBP BP-Mean 96 Respiration from ECG 17 SpO2 100 General Appearance: awake alert Neck: supple, no JVD Heart: RRR, no gallops Respiratory: no wheezes, no ronchi Gastrointestinal: soft, non-tender, normal bowel sounds Extremities: no cyanosis Neurological: no new deficit Hosp A/P (1) Coronary artery disease Code(s): I25.10 - ATHSCL HEART DISEASE OF [place] CORONARY ARTERY W/O ANG PCTRS Status: Acute (2) Hypertension Code(s): I10 - ESSENTIAL (PRIMARY) HYPERTENSION Status: Chronic (3) Hyperlipidemia Code(s): E78.5 - HYPERLIPIDEMIA, UNSPECIFIED Status: Chronic (4) Heart failure with reduced ejection fraction Code(s): I50.20 - UNSPECIFIED SYSTOLIC (CONGESTIVE) HEART FAILURE Status: Acute (5) Hypomagnesemia Code(s): E83.42 - HYPOMAGNESEMIA Status: Acute - Plan DVT proph w/SCDs Coronary artery disease status post CABG Continue postoperative care. Continue aspirin, beta-blockers with statin Chronic systolic heart failure due to ischemic cardiomyopathy Dobutamine drip will be discontinued. Continue Coreg. Continue diuretics. Replace potassium. Not on NIKO inhibitor or ARB due to relative hypotension Hypokalemia We will replace Hyperlipidemia Continue statins Hypertension Plan as above
[2020-04-10] MEDS: Atorvastatin Calcium 20 MG TAB PO SCH (20:41)
[2020-04-10] MEDS: Acetaminophen 325 MG TAB PO PRN (20:57)
[2020-04-11] MEDS ORDERED: Furosemide 40 MG TAB PO SCH (07:30)
[2020-04-11] MEDS: Famotidine 20 MG TAB PO SCH (08:11)
[2020-04-11] MEDS: Aspirin Chewable 81 MG TAB PO SCH (08:12)
[2020-04-11] MEDS: Potassium Chloride 20 MEQ TAB PO SCH (08:13)
[2020-04-11 08:18] VITALS: BP 109/67; TEMP 98
--- NOTE | 2020-04-11 09:42 | OP ---
DATE OF PROCEDURE: 04/07/2020 PREOPERATIVE DIAGNOSES: 1. Coronary artery disease. 2. Left ventricular dysfunction. PROCEDURE PERFORMED: Coronary artery bypass graft x4, left internal mammary artery to the LAD, saphenous vein graft to ramus, OM, and left PDA system. ANESTHESIA: General. ESTIMATED BLOOD LOSS: . TRANSFUSION: None. DESCRIPTION OF PROCEDURE: After adequate anesthesia had been obtained, patient was prepped and draped. An endovascular vein harvest of the left greater saphenous vein was performed by myself and then taken over by Dr. Voss. I performed a median sternotomy harvesting the left internal mammary artery. After heparinization, the mammary was divided distally and passed posterior to the thymus gland. Aorta and right atrium were cannulated and cardiopulmonary bypass was begun. The patient had a very large heart. Saphenous vein was then anastomosed to the left PDA and cut to length. Following which, a sequential anastomosis between the OM end-to-side and the ramus [id number] anastomosis was completed. Following this, the LOPEZ to LAD anastomosis completed and the cross-clamp was removed. Partial occluding clamp placed and the sequential vein graft was anastomosed to the aortic root. Following this, the partial occluding clamp was removed and the saphenous vein from the left PDA was anastomosed to the side of the vein graft that was anastomosed to the aortic root about 2.5 cm from the aortic root. The patient was then weaned from cardiopulmonary bypass on milrinone and Levophed. Cannulas were removed and protamine was given systemically. After obtaining good hemostasis, the sternum was reapproximated over mediastinal and pleural drains using #7 interrupted wire with vancomycin paste on the sternal edges, platelet-rich blood, and platelet-poor plasma. Subcutaneous tissue and skin were closed in layers. Job ID: [id number]
[2020-04-11] MEDS: Carvedilol 3.125 MG TAB PO SCH (10:02)
--- NOTE | 2020-04-11 13:10 | DIS ---
DATE OF ADMISSION: 04/04/2020 DATE OF DISCHARGE: 04/11/2020 HOSPITAL COURSE: The patient was admitted and transferred from the [facility] after cardiac catheterization showed significant coronary artery disease in combination with a known ejection fraction of about 15% to 20%. The patient was taken to the operating room on the next available operating day, which was Tuesday, where he underwent coronary artery bypass grafting x4. He required milrinone and Levophed initially for support and these were gradually weaned off and he was placed on low-dose dobutamine for another 24 to 36 hours and then this was stopped. His Coreg and Entresto were resumed and he had a good diuresis with his weight decreasing to 209 pounds, approaching his 204 on admission and [place] 216 [place]. He was ambulating in the halls independently and will be discharged home on his admitting medicines with Entresto being taken just once a day initially. No prescriptions have been written and he will continue his Lasix, potassium, and Coreg. He will also be discharged on Lipitor 20 a day due to his coronary artery disease. Discharge and followup instructions have been given. Job ID: [id number]
== END 2020-04-11 12:06 | disposition home or self-care (01) | DRG 235 ==
LOC: 2NO 11:52 → CCU 04-07 14:45 → 2NO 04-09 14:25
PROVIDERS: ADMIT Internal Medicine; ATTEND Thoracic Surgery (Cardiothoracic Vascular Surgery)
PROC: 02100Z9 Bypass Coronary Artery, One Artery from Left Internal Mammary, Open Approach (ICD-10-PCS; principal; 2020-04-07)
PROC: 021209W Bypass Coronary Artery, Three Arteries from Aorta with Autologous Venous Tissue, Open Approach (ICD-10-PCS; 2020-04-07)
PROC: 06BQ4ZZ Excision of Left Saphenous Vein, Percutaneous Endoscopic Approach (ICD-10-PCS; 2020-04-07)
PROC: 5A1221Z Performance of Cardiac Output, Continuous (ICD-10-PCS; 2020-04-07)
DX: I25.10 Atherosclerotic heart disease of native coronary artery without angina pectoris (principal); I50.23 Acute on chronic systolic (congestive) heart failure; Z20.822 Contact with and (suspected) exposure to COVID-19; I11.0 Hypertensive heart disease with heart failure; I25.5 Ischemic cardiomyopathy; E78.5 Hyperlipidemia, unspecified; E78.00 Pure hypercholesterolemia, unspecified; E83.42 Hypomagnesemia; E87.6 Hypokalemia; Z88.0 Allergy status to penicillin; Z79.899 Other long term (current) drug therapy
CPT/HCPCS: 36415; 36416; 71045; 80048; 80061; 80076; 82805; 83036; 83735; 83880; 85025; 85610; 85730; 86850; 86900; 86901; 93005; 93010; 93306; 93798; 97139; J1100; J1200; J1250; J1642; J1644; J1815; J1885; J1940; J1956; J2001; J2150; J2250; J2260; J2270; J2405; J2440; J3010; J3370; J3475; J3480; J3490; P9045; S0017; S0028

== ENCOUNTER 2023-02-28 06:51 | Inpatient (IN) | payer OTHER ==
[2023-02-28] MEDS ORDERED: Milrinone 10 MG/10 ML VIAL ONE (07:13)
[2023-02-28] MEDS ORDERED: Vasopressin 20 UNITS/ML VIAL ONE (07:14)
[2023-02-28] MEDS ORDERED: Albumin 5% 500 ML ONE (07:15)
[2023-02-28] MEDS ORDERED: Phenylephrine 40 MG/NS 250 ML 250 ML ONE (07:20)
[2023-02-28] MEDS ORDERED: Sodium Chloride 0.9% 250 ML 250 ML ONE (07:20)
[2023-02-28] MEDS ORDERED: NOREPINEPHRINE 8 MG/250 ML-D5W 250 ML ONE (07:26)
[2023-02-28] MEDS ORDERED: Heparin 10,000 UNITS/1 ML VIAL 30,000 UNITS in Sodium Chloride 0.9% 1,000 ML FS SCH (07:30)
[2023-02-28] MEDS ORDERED: Fentanyl 250 MCG/5 ML VIAL ONE (07:37)
[2023-02-28] MEDS ORDERED: Vecuronium 10 MG VIAL ONE (07:39)
[2023-02-28] MEDS ORDERED: PHENYLEPHRINE-NS 100 MCG/ML 10 ML SYRINGE ONE (07:39)
[2023-02-28] MEDS ORDERED: Rocuronium Bromide 10 MG/ML (10ML VIAL) ONE (07:39)
[2023-02-28] MEDS ORDERED: Nitroglycerin 50 MG/250 ML BOT ONE (08:30)
[2023-02-28] MEDS ORDERED: Etomidate 40 MG (20 mL) VIAL ONE (08:30)
[2023-02-28] MEDS ORDERED: Sodium Bicarb 50 mEq/50 ML VIAL ONE (08:30)
[2023-02-28 08:33] LABS: #Eosinphils 0.2 thou/uL (0.0-0.7); #Monocytes 0.6 thou/uL (0.11-0.59); #Neutrophils 5.4 thou/uL (1.40-6.50); %Basophils 0.5 % (0.0-1.0); %Eosinophils 2.5 % (0.0-10.0); %Lymphocytes 16.8 % (21.0-51.0); %Monocytes 8.1 % (0.0-10.0); %Neutrophils 71.8 % (42.0-75.0); Hematocrit 35.6 % (42.0-52.0); Hemoglobin 12.2 g/dL (14.0-18.0); Mean Corpuscular HGB CONC 34.3 g/dL (32.0-36.0); Mean Corpuscular Hemoglobin 31.5 pg (27.0-31.0); Mean Platelet Volume 10.4 fL (7.4-10.4); Platelet Count 189 10x3/uL (130-400); RBC Distribution Width 12.3 % (11.5-14.5); Red Blood Cell (RBC) Count 3.87 mill/uL (4.70-6.10); White Blood Cell (WBC) Count 7.5 10x3/uL (4.8-10.8)
[2023-02-28 08:55] LABS: Anion Gap 13 mmol/L (10-20); BUN (Urea Nitrogen) 40 mg/dL (8.4-25.7); Calc. Creatinine Clearance 28 mL/min (70-130); Calcium 9.1 mg/dL (7.8-10.44); Carbon Dioxide 23 mmol/L (23-31); Chloride 108 mmol/L (98-107); Estimated GFR 21; Glucose 98 mg/dL (83-110); Potassium 4.2 mmol/L (3.5-5.1); Sodium 140 mmol/L (136-145)
[2023-02-28 09:26] LABS: INR-International Normal Ratio 1.1; Prothrombin Time 14.5 sec (12.0-14.7)
[2023-02-28 09:27] LABS: PTT 29.9 sec (22.9-36.1)
[2023-02-28] MEDS ORDERED: Midazolam HCl 2 mg/2 ml Vial ONE (09:45)
[2023-02-28] MEDS ORDERED: Clindamycin/D5W 900 mg/50 ml Premix Bag ONE (09:51)
[2023-02-28] MEDS ORDERED: Heparin 10,000 UNITS/ 10 ML VIAL ONE (11:07)
[2023-02-28] MEDS ORDERED: Protamine Sulfate 50 MG/5 ML VIAL ONE (12:13)
[2023-02-28] MEDS ORDERED: Ondansetron PF 4 MG/2 ML Vial ONE (12:29)
[2023-02-28] MEDS ORDERED: HYDROmorphone 2 MG/ML VIAL ONE (12:37)
[2023-02-28] MEDS ORDERED: SUGAMMADEX SODIUM 200 MG/2 ML VIAL ONE (12:53)
[2023-02-28] MEDS ORDERED: DOPamine 400 MG/D5W 250 ML 250 ML IVPB PRN (13:03)
[2023-02-28] MEDS ORDERED: Ondansetron PF 4 MG/2 ML Vial IVP PRN (13:03)
[2023-02-28] MEDS ORDERED: niCARdipine 25 MG in Sodium Chloride 0.9% 250 ML 250 ML IVPB PRN (13:03)
[2023-02-28] MEDS ORDERED: diphenhydrAMINE 50 MG/ML VIAL IVP PRN (13:27)
[2023-02-28] MEDS ORDERED: diphenhydrAMINE 50 MG/ML VIAL IM PRN (13:27)
[2023-02-28] MEDS ORDERED: Naloxone HCl 0.4 mg/ml Vial IV PRN (13:27)
[2023-02-28] MEDS ORDERED: HYDROmorphone/PF 10 MG in Sodium Chloride 0.9% 99 ML IV PRN (13:27)
[2023-02-28] MEDS ORDERED: diphenhydrAMINE 25 MG CAP PO PRN (13:27)
[2023-02-28] MEDS ORDERED: Communication Order-Pharmacy FS SCH (13:30)
[2023-02-28] MEDS: Sodium Chloride 0.9% 1,000 ML IV SCH ×2 (14:00→19:48)
[2023-02-28 15:13] LABS: #Eosinphils 0.1 thou/uL (0.0-0.7); #Monocytes 0.8 thou/uL (0.11-0.59); #Neutrophils 8.9 thou/uL (1.40-6.50); %Basophils 0.4 % (0.0-1.0); %Eosinophils 1.2 % (0.0-10.0); %Lymphocytes 11.4 % (21.0-51.0); %Monocytes 6.9 % (0.0-10.0); %Neutrophils 79.8 % (42.0-75.0); Hematocrit 31.7 % (42.0-52.0); Hemoglobin 10.7 g/dL (14.0-18.0); Mean Corpuscular HGB CONC 33.8 g/dL (32.0-36.0); Mean Corpuscular Hemoglobin 31.6 pg (27.0-31.0); Mean Corpuscular Volume 93.5 fl (78.0-98.0); Mean Platelet Volume 10.7 fL (7.4-10.4); Platelet Count 167 10x3/uL (130-400); RBC Distribution Width 12.4 % (11.5-14.5); Red Blood Cell (RBC) Count 3.39 mill/uL (4.70-6.10); White Blood Cell (WBC) Count 11.2 10x3/uL (4.8-10.8)
[2023-02-28] MEDS: Clindamycin/D5W 900 MG in Premix 1 BAG IVPB SCH ×2 (15:23→21:11)
[2023-02-28 15:48] LABS: Anion Gap 15 mmol/L (10-20); BUN (Urea Nitrogen) 35 mg/dL (8.4-25.7); Calc. Creatinine Clearance 30 mL/min (70-130); Calcium 7.8 mg/dL (7.8-10.44); Carbon Dioxide 21 mmol/L (23-31); Chloride 111 mmol/L (98-107); Estimated GFR 24; Glucose 124 mg/dL (83-110); Potassium 3.7 mmol/L (3.5-5.1); Sodium 143 mmol/L (136-145)
[2023-02-28 17:17] LABS: #Eosinphils 0.1 thou/uL (0.0-0.7); #Monocytes 0.9 thou/uL (0.11-0.59); #Neutrophils 9.1 thou/uL (1.40-6.50); %Basophils 0.3 % (0.0-1.0); %Eosinophils 0.6 % (0.0-10.0); %Lymphocytes 8.8 % (21.0-51.0); %Monocytes 7.9 % (0.0-10.0); %Neutrophils 82.2 % (42.0-75.0); Hemoglobin 10.5 g/dL (14.0-18.0); Mean Corpuscular HGB CONC 33.9 g/dL (32.0-36.0); Mean Corpuscular Hemoglobin 31.5 pg (27.0-31.0); Mean Corpuscular Volume 93.1 fl (78.0-98.0); Mean Platelet Volume 9.8 fL (7.4-10.4); Platelet Count 139 10x3/uL (130-400); RBC Distribution Width 12.3 % (11.5-14.5); Red Blood Cell (RBC) Count 3.33 mill/uL (4.70-6.10); White Blood Cell (WBC) Count 11.1 10x3/uL (4.8-10.8)
[2023-02-28] MEDS: Famotidine/PF 20 mg/2ml Vial SLOW IVP SCH (19:59)
[2023-03-01] MEDS: Clindamycin/D5W 900 MG in Premix 1 BAG IVPB SCH ×2 (04:24→09:42)
[2023-03-01] MEDS: Sodium Chloride 0.9% 1,000 ML IV SCH (04:25)
[2023-03-01 04:35] LABS: #Neutrophils 8.1 thou/uL (1.40-6.50); %Basophils 0.3 % (0.0-1.0); %Lymphocytes 5.7 % (21.0-51.0); %Neutrophils 83.7 % (42.0-75.0); Hematocrit 30.3 % (42.0-52.0); Hemoglobin 10.4 g/dL (14.0-18.0); Mean Corpuscular HGB CONC 34.3 g/dL (32.0-36.0); Mean Corpuscular Volume 93.2 fl (78.0-98.0); Mean Platelet Volume 10.1 fL (7.4-10.4); Platelet Count 146 10x3/uL (130-400); RBC Distribution Width 12.4 % (11.5-14.5); Red Blood Cell (RBC) Count 3.25 mill/uL (4.70-6.10); White Blood Cell (WBC) Count 9.7 10x3/uL (4.8-10.8)
[2023-03-01 05:01] LABS: Anion Gap 12 mmol/L (10-20); BUN (Urea Nitrogen) 31 mg/dL (8.4-25.7); Calc. Creatinine Clearance 33 mL/min (70-130); Calcium 7.5 mg/dL (7.8-10.44); Carbon Dioxide 19 mmol/L (23-31); Chloride 112 mmol/L (98-107); Estimated GFR 27; Glucose 117 mg/dL (83-110); Potassium 3.8 mmol/L (3.5-5.1); Sodium 139 mmol/L (136-145)
[2023-03-01] MEDS: Lactated Ringer's 1,000 ML IV SCH ×2 (08:01→17:21)
[2023-03-01] MEDS ORDERED: FLU VACC QS2023(65UP)/MF59C/PF 60 MCG/0.5 ML SYRINGE IM ONE (09:00)
[2023-03-01] MEDS: Amiodarone 450 MG, Admixture Fee 1 EACH in Dextrose 5% in Water 250 ML IVPB SCH ×2 (14:02→22:14)
[2023-03-01] MEDS ORDERED: Potassium Chloride 20 MEQ (100 mL) BAG IVPB SCH (18:30)
[2023-03-01] MEDS: Famotidine/PF 20 mg/2ml Vial SLOW IVP SCH (20:26)
[2023-03-01] MEDS: Ondansetron PF 4 MG/2 ML Vial IVP PRN (23:14)
[2023-03-02] MEDS: Lactated Ringer's 1,000 ML IV SCH ×2 (03:34→09:14)
[2023-03-02 04:12] LABS: Anion Gap 14 mmol/L (10-20); BUN (Urea Nitrogen) 26 mg/dL (8.4-25.7); Calc. Creatinine Clearance 34 mL/min (70-130); Calcium 8.2 mg/dL (7.8-10.44); Carbon Dioxide 18 mmol/L (23-31); Chloride 113 mmol/L (98-107); Estimated GFR 28; Glucose 127 mg/dL (83-110); Magnesium 1.8 mg/dL (1.6-2.6); Potassium 4.4 mmol/L (3.5-5.1); Sodium 141 mmol/L (136-145)
[2023-03-02] MEDS: Ondansetron PF 4 MG/2 ML Vial IVP PRN (09:14)
[2023-03-02] MEDS ORDERED: Polyethylene Glycol 3350 17 GM Packet PO PRN (09:48)
[2023-03-02] MEDS ORDERED: Senokot 8.6 MG TAB PO PRN (09:49)
[2023-03-02] MEDS ORDERED: Senokot 8.6 MG TAB PO SCH (10:00)
[2023-03-02] MEDS ORDERED: Polyethylene Glycol 3350 17 GM Packet PO SCH (10:00)
[2023-03-02 12:14] LABS: Actual Bicarbonate (HCO3a) 18.3 mEq/L (22-28); Analyzer IN Cardio OR; Base Excess (BEa) -5.6 mEq/L (-2.0 to +3.0); CO2 Tension 29.8 mmHg (35.0-45.0); Calcium, Ionized (arterial) 0.89 mmol/L (1.12-1.30); Carboxyhemoglobin (COHb) 0.6 gm% (0.0-3.0); Hematocrit-ABG 24 % (42.0-52.0); Hemoglobin (Hb) 8.3 g/dL (14.0-18.0); O2 Tension (PaO2), arterial 389.3 mmHg (> 70.0); Potassium - ABG Lab 2.73 mmol/L (3.70-5.30); pH, Arterial 7.407 (7.35-7.45)
[2023-03-02 12:14] LABS: Actual Bicarbonate (HCO3a) 20.7 mEq/L (22-28); Analyzer IN Cardio OR; Base Excess (BEa) -4.1 mEq/L (-2.0 to +3.0); CO2 Tension 36.8 mmHg (35.0-45.0); Hematocrit-ABG 31 % (42.0-52.0); Hemoglobin (Hb) 10.6 g/dL (14.0-18.0); Potassium - ABG Lab 3.82 mmol/L (3.70-5.30); pH, Arterial 7.368 (7.35-7.45)
[2023-03-02 12:14] LABS: Actual Bicarbonate (HCO3a) 22.2 mEq/L (22-28); Analyzer IN Cardio OR; Base Excess (BEa) -2.2 mEq/L (-2.0 to +3.0); CO2 Tension 36.5 mmHg (35.0-45.0); Calcium, Ionized (arterial) 1.09 mmol/L (1.12-1.30); Carboxyhemoglobin (COHb) 0.1 gm% (0.0-3.0); Hematocrit-ABG 31 % (42.0-52.0); Hemoglobin (Hb) 10.6 g/dL (14.0-18.0); Potassium - ABG Lab 3.46 mmol/L (3.70-5.30); pH, Arterial 7.402 (7.35-7.45)
[2023-03-02 12:15] LABS: Puncture Site Arterial Line
[2023-03-02 12:15] LABS: Puncture Site Arterial Line
[2023-03-02 12:16] LABS: Puncture Site Arterial Line
[2023-03-02] MEDS: Amiodarone 450 MG, Admixture Fee 1 EACH in Dextrose 5% in Water 250 ML IVPB SCH ×2 (13:09→23:53)
[2023-03-02] MEDS: Carvedilol 3.125 MG TAB PO SCH (16:46)
[2023-03-02 18:38] LABS: Troponin I 0.011 ng/mL (< 0.028)
[2023-03-02] MEDS: Famotidine/PF 20 mg/2ml Vial SLOW IVP SCH (20:55)
[2023-03-03] MEDS: Ondansetron PF 4 MG/2 ML Vial IVP PRN (05:59)
[2023-03-03] MEDS: Lactated Ringer's 1,000 ML IV SCH ×2 (07:16→07:20)
[2023-03-03] MEDS: Carvedilol 3.125 MG TAB PO SCH ×2 (07:35→16:18)
[2023-03-03] MEDS ORDERED: traMADol HCl 50 MG TAB PO PRN (09:10)
[2023-03-03] MEDS: Aspirin 81 mg Enteric Coated Tablet PO SCH (10:40)
[2023-03-03] MEDS: Famotidine 20 MG TAB PO SCH (20:29)
[2023-03-03] MEDS: Atorvastatin Calcium 20 MG TAB PO SCH (20:30)
[2023-03-04 05:14] LABS: Anion Gap 13 mmol/L (10-20); BUN (Urea Nitrogen) 20 mg/dL (8.4-25.7); Calc. Creatinine Clearance 40 mL/min (70-130); Calcium 8.1 mg/dL (7.8-10.44); Carbon Dioxide 21 mmol/L (23-31); Cardiac Risk 3.4 (Less than 4.5); Chloride 105 mmol/L (98-107); Cholesterol 120 mg/dl (< 200 Desired); Estimated GFR 35; Glucose 104 mg/dL (83-110); HDL Cholesterol 35 mg/dL (>60 Neg Risk); LDL Cholesterol, Calculated 67 mg/dL; Potassium 3.2 mmol/L (3.5-5.1); Sodium 136 mmol/L (136-145); Triglycerides 92 mg/dL (Less than 150)
[2023-03-04] MEDS: Carvedilol 3.125 MG TAB PO SCH ×2 (09:14→17:18)
[2023-03-04] MEDS: Potassium Chloride 20 MEQ TAB PO SCH ×2 (09:14→17:18)
[2023-03-04] MEDS: Furosemide 40 MG TAB PO SCH (09:14)
[2023-03-04] MEDS: Enoxaparin 40 MG (0.4 mL) SYRINGE SC SCH (09:15)
[2023-03-04] MEDS: Aspirin 81 mg Enteric Coated Tablet PO SCH (09:15)
[2023-03-04] MEDS: Atorvastatin Calcium 20 MG TAB PO SCH (20:42)
[2023-03-04] MEDS: Famotidine 20 MG TAB PO SCH (20:43)
[2023-03-05 04:11] VITALS: TEMP 98.4
[2023-03-05 06:10] VITALS: BMI 26.8
[2023-03-05] MEDS: Furosemide 40 MG TAB PO SCH (09:33)
[2023-03-05] MEDS: Aspirin 81 mg Enteric Coated Tablet PO SCH (09:33)
[2023-03-05] MEDS: Carvedilol 3.125 MG TAB PO SCH (09:33)
[2023-03-05] MEDS: Potassium Chloride 20 MEQ TAB PO SCH (09:33)
[2023-03-05] MEDS: Enoxaparin 40 MG (0.4 mL) SYRINGE SC SCH (09:34)
[2023-03-05 12:06] VITALS: BP 121/71
== END 2023-03-05 11:48 | disposition home or self-care (01) | DRG 271 ==
LOC: SURG A 07:02 → CCU 14:06 → 2NO 03-03 17:32
PROVIDERS: ADMIT Thoracic Surgery (Cardiothoracic Vascular Surgery); ATTEND Thoracic Surgery (Cardiothoracic Vascular Surgery)
PROC: 30233J1 Transfusion of Nonautologous Serum Albumin into Peripheral Vein, Percutaneous Approach (ICD-10-PCS; principal; 2023-02-28)
PROC: 04R Lower Arteries, Replacement (ICD-10-PCS; 2023-02-28)
PROC: 3E033XZ Introduction of Vasopressor into Peripheral Vein, Percutaneous Approach (ICD-10-PCS; 2023-02-28)
PROC: 0T9B80Z Drainage of Bladder with Drainage Device, Via Natural or Artificial Opening Endoscopic (ICD-10-PCS; 2023-02-28)
PROC: 4A133R1 Monitoring of Arterial Saturation, Peripheral, Percutaneous Approach (ICD-10-PCS; 2023-02-28)
DX: I71.40 Abdominal aortic aneurysm, without rupture, unspecified (principal); I47.20 Ventricular tachycardia, unspecified; I50.42 Chronic combined systolic (congestive) and diastolic (congestive) heart failure; N13.30 Unspecified hydronephrosis; N17.9 Acute kidney failure, unspecified; I11.0 Hypertensive heart disease with heart failure; N40.1 Benign prostatic hyperplasia with lower urinary tract symptoms; R33.8 Other retention of urine; N26.1 Atrophy of kidney (terminal); R31.0 Gross hematuria; N32.9 Bladder disorder, unspecified; I25.5 Ischemic cardiomyopathy; I25.10 Atherosclerotic heart disease of native coronary artery without angina pectoris; E78.00 Pure hypercholesterolemia, unspecified; Z95.1 Presence of aortocoronary bypass graft; Z88.0 Allergy status to penicillin; Z79.899 Other long term (current) drug therapy; Z98.890 Other specified postprocedural states
CPT/HCPCS: 36415; 36416; 74176; 80048; 80061; 82805; 83735; 84484; 85025; 85610; 85730; 86850; 86900; 86901; 93005; 93010; 93306; A4311; C1747; C1889; J0282; J1170; J1265; J1642; J1644; J1650; J2250; J2260; J2405; J2720; J3010; J3480; J3490; J7050; J7070; J7120; P9045; S0028

== ENCOUNTER 2025-01-04 06:39 | Day surgery (SDC) | payer OTHER ==
[2025-01-03 15:46] VITALS: BMI 28.5
[2025-01-04] MEDS ORDERED: Lidocaine 1% PF 5 ML VIAL ONE ×2 (08:08→21:08)
[2025-01-04] MEDS ORDERED: PROPOFOL 200 MG/20 ML VIAL ONE ×2 (08:57→21:08)
[2025-01-04] MEDS ORDERED: Rocuronium Bromide 10 MG/ML (10ML VIAL) ONE (21:08)
[2025-01-04] MEDS ORDERED: EPINEPHrine 1 MG/10 ML Abboject SYRINGE ONE (21:08)
[2025-01-04] MEDS ORDERED: Ondansetron PF 4 MG/2 ML Vial ONE (21:08)
[2025-01-04] MEDS ORDERED: PHENYLEPHRINE-NS 100 MCG/ML 10 ML SYRINGE ONE (21:08)
== END 2025-01-04 10:20 | disposition home or self-care (01) ==
LOC: SDC 06:39
PROVIDERS: ATTEND Internal Medicine
PROC: 0DBK8ZZ Excision of Ascending Colon, Via Natural or Artificial Opening Endoscopic (ICD-10-PCS; principal; 2025-01-04)
PROC: 0DBL8ZZ Excision of Transverse Colon, Via Natural or Artificial Opening Endoscopic (ICD-10-PCS; 2025-01-04)
PROC: 0DBN8ZZ Excision of Sigmoid Colon, Via Natural or Artificial Opening Endoscopic (ICD-10-PCS; 2025-01-04)
PROC: 0DBM8ZZ Excision of Descending Colon, Via Natural or Artificial Opening Endoscopic (ICD-10-PCS; 2025-01-04)
PROC: 0DBH8ZZ Excision of Cecum, Via Natural or Artificial Opening Endoscopic (ICD-10-PCS; 2025-01-04)
DX: Z12.11 Encounter for screening for malignant neoplasm of colon (principal); D12.0 Benign neoplasm of cecum; D12.2 Benign neoplasm of ascending colon; D12.3 Benign neoplasm of transverse colon; D12.4 Benign neoplasm of descending colon; D12.5 Benign neoplasm of sigmoid colon; K64.4 Residual hemorrhoidal skin tags; K57.30 Diverticulosis of large intestine without perforation or abscess without bleeding; R19.5 Other fecal abnormalities; Z86.0100 Personal history of colon polyps, unspecified; Z80.0 Family history of malignant neoplasm of digestive organs; Z95.1 Presence of aortocoronary bypass graft; Z95.810 Presence of automatic (implantable) cardiac defibrillator; Z88.0 Allergy status to penicillin
CPT/HCPCS: 45385; J0165; J2405; J2704; 88305

== ENCOUNTER 2025-01-04 17:21 | Inpatient (IN) | payer OTHER ==
[~2025-01-04 17:21] MED LIST: Iopamidol-370 76% 500 ML MDV (1 ML CHARGE) ONE
[2025-01-04] MEDS ORDERED: Tranexamic Acid 1,000 MG/10 ML VIAL ONE ×3 (17:51→20:27)
[2025-01-04 18:08] LABS: #Basophils 0.07 10x3/uL (0.0-0.2); #Eosinophils 0.36 10x3/uL (0.0-0.7); #Monocytes 0.76 10x3/uL (0.11-0.59); #Neutrophils 8.88 10x3/uL (1.40-6.50); %Basophils 0.6 % (0.0-1.0); %Eosinophils 3.1 % (0.0-10.0); %Lymphocytes 14.1 % (21.0-51.0); %Monocytes 6.5 % (0.0-10.0); %Neutrophils 75.3 % (42.0-75.0); Hematocrit 40.0 % (42.0-52.0); Hemoglobin 13.7 g/dL (14.0-18.0); Mean Corpuscular Hemoglobin 31.0 pg (27.0-31.0); Mean Corpuscular Volume 90.5 fL (78.0-98.0); Platelet Count 229 10x3/uL (130-400); Red Blood Cell (RBC) Count 4.42 mill/uL (4.70-6.10); White Blood Cell (WBC) Count 11.78 10x3/uL (4.8-10.8)
[2025-01-04 18:22] LABS: ALT (SGPT) 24 U/L (Less than 45); AST (SGOT) 30 U/L (11-34); Albumin 3.2 g/dL (3.1-4.5); Alkaline Phosphatase 84 U/L (40-110); Anion Gap 13 mmol/L (10-20); BUN (Urea Nitrogen) 20 mg/dL (8.4-25.7); Bilirubin, Total 1.0 mg/dL (0.3-1.2); Calc. Creatinine Clearance 0 mL/min (70-130); Calcium 8.6 mg/dL (7.8-10.44); Carbon Dioxide 22 mmol/L (23-31); Chloride 106 mmol/L (98-107); Globulin 2.9 g/dL (2.4-3.5); Glucose 96 mg/dL (83-110); INR-International Normal Ratio 1.1; PTT 31.4 sec (22.9-36.1); Potassium 3.4 mmol/L (3.5-5.1); Prothrombin Time 14.4 sec (12.0-14.7); Sodium 138 mmol/L (136-145)
[2025-01-04] MEDS ORDERED: Ondansetron PF 4 MG/2 ML Vial IVP PRN (20:10)
[2025-01-04] MEDS ORDERED: Mineral Oil ENEMA ONE ×2 (20:24→20:25)
[2025-01-04] MEDS ORDERED: Rocuronium Bromide 10 MG/ML (10ML VIAL) ONE (20:47)
[2025-01-04] MEDS ORDERED: SUCCINYLCHOLINE/SOD CL,ISO/PF 200 MG/10 ML SYRINGE FS ONE (20:47)
[2025-01-04] MEDS ORDERED: Ondansetron PF 4 MG/2 ML Vial ONE (20:49)
[2025-01-04 20:52] LABS: Platelet Count 245 10x3/uL (130-400)
[2025-01-04 20:56] LABS: Fibrinogen 377 mg/dL (253-463)
[2025-01-04 20:58] LABS: INR-International Normal Ratio 1.1; PTT 32.2 sec (22.9-36.1); Prothrombin Time 13.9 sec (12.0-14.7)
[2025-01-04 21:05] LABS: D-Dimer Test 1.13 mcg/mL (0.27-0.43)
[2025-01-04] MEDS ORDERED: PHENYLEPHRINE-NS 100 MCG/ML 10 ML SYRINGE ONE (21:08)
[2025-01-04] MEDS ORDERED: EPINEPHrine 1 MG/10 ML Abboject SYRINGE ONE (21:31)
[2025-01-04] MEDS ORDERED: Pantoprazole 80 MG, Admixture Fee 1 EACH in Sodium Chloride 0.9% 100 ML IVPB SCH (22:00)
[2025-01-04] MEDS ORDERED: SUGAMMADEX SODIUM 200 MG/2 ML VIAL ONE ×2 (22:01→22:02)
[2025-01-04 23:33] LABS: Hematocrit 37.3 % (42.0-52.0); Hemoglobin 13.0 g/dL (14.0-18.0); Platelet Count 134 10x3/uL (130-400)
[2025-01-05] MEDS: Mineral Oil ENEMA PR SCH (00:12)
[2025-01-05 00:17] VITALS: BMI 29.6
[2025-01-05] MEDS: Acetaminophen 325 MG TAB PO PRN (00:39)
[2025-01-05 03:19] LABS: #Basophils 0.04 10x3/uL (0.0-0.2); #Eosinophils 0.05 10x3/uL (0.0-0.7); #Monocytes 1.75 10x3/uL (0.11-0.59); #Neutrophils 18.80 10x3/uL (1.40-6.50); %Basophils 0.2 % (0.0-1.0); %Eosinophils 0.2 % (0.0-10.0); %Lymphocytes 2.8 % (21.0-51.0); %Monocytes 8.2 % (0.0-10.0); %Neutrophils 87.9 % (42.0-75.0); Hematocrit 35.4 % (42.0-52.0); Hemoglobin 12.4 g/dL (14.0-18.0); Mean Corpuscular Hemoglobin 31.2 pg (27.0-31.0); Mean Corpuscular Volume 88.9 fL (78.0-98.0); Platelet Count 146 10x3/uL (130-400); Red Blood Cell (RBC) Count 3.98 mill/uL (4.70-6.10); White Blood Cell (WBC) Count 21.40 10x3/uL (4.8-10.8)
[2025-01-05 04:17] LABS: ALT (SGPT) 21 U/L (Less than 45); AST (SGOT) 20 U/L (11-34); Albumin 3.0 g/dL (3.1-4.5); Alkaline Phosphatase 67 U/L (40-110); Anion Gap 17 mmol/L (10-20); BUN (Urea Nitrogen) 25 mg/dL (8.4-25.7); Bilirubin, Total 2.6 mg/dL (0.3-1.2); Calc. Creatinine Clearance 54 mL/min (70-130); Calcium 8.1 mg/dL (7.8-10.44); Carbon Dioxide 19 mmol/L (23-31); Chloride 109 mmol/L (98-107); Globulin 2.2 g/dL (2.4-3.5); Glucose 94 mg/dL (83-110); Potassium 3.5 mmol/L (3.5-5.1); Sodium 141 mmol/L (136-145)
[2025-01-05] MEDS: cefTRIAXone\\ROCEPHIN 1 GM in Sodium Chloride 0.9% 100 ML IVPB SCH (05:18)
[2025-01-05 06:04] LABS: Bacteria/HPF None Seen HPF (None Seen); CAUTI Indications for Culture Fever or rigors; Glucose, Urine (Dipstick) Normal (Negative); Leukocyte 75 Leu/uL (Negative); Protein, Urine (Dipstick) 10 mg/dL (Neg-Trace); Specific Gravity, Urine 1.036 (1.002-1.036)
[2025-01-05 06:19] LABS: Urine Culture Reflex Yes Yes
[2025-01-05 09:09] LABS: Hematocrit 37.4 % (42.0-52.0); Hemoglobin 12.7 g/dL (14.0-18.0); Platelet Count 145 10x3/uL (130-400)
[2025-01-05] MEDS: Carvedilol 3.125 MG TAB PO SCH (09:19)
[2025-01-05] MEDS: Mupirocin 1 GM TUBE NASAL DECOLONIZATION NASAL SCH (09:19)
[2025-01-05] MEDS: Aspirin 81 mg Enteric Coated Tablet PO SCH (09:23)
[2025-01-05 13:17] LABS: #Basophils 0.04 10x3/uL (0.0-0.2); #Eosinophils 0.06 10x3/uL (0.0-0.7); #Monocytes 0.92 10x3/uL (0.11-0.59); #Neutrophils 16.90 10x3/uL (1.40-6.50); %Basophils 0.2 % (0.0-1.0); %Eosinophils 0.3 % (0.0-10.0); %Lymphocytes 7.1 % (21.0-51.0); %Monocytes 4.7 % (0.0-10.0); %Neutrophils 87.0 % (42.0-75.0); Hematocrit 36.0 % (42.0-52.0); Hemoglobin 12.6 g/dL (14.0-18.0); Mean Corpuscular Hemoglobin 31.3 pg (27.0-31.0); Mean Corpuscular Volume 89.6 fL (78.0-98.0); Platelet Count 148 10x3/uL (130-400); Red Blood Cell (RBC) Count 4.02 mill/uL (4.70-6.10); White Blood Cell (WBC) Count 19.44 10x3/uL (4.8-10.8)
[2025-01-05 14:50] LABS: Hematocrit 34.4 % (42.0-52.0); Hemoglobin 12.2 g/dL (14.0-18.0); Platelet Count 149 10x3/uL (130-400)
[2025-01-05 19:18] LABS: Hematocrit 36.1 % (42.0-52.0); Hemoglobin 12.2 g/dL (14.0-18.0); Platelet Count 138 10x3/uL (130-400)
[2025-01-06 03:59] LABS: #Basophils 0.05 10x3/uL (0.0-0.2); #Eosinophils 0.28 10x3/uL (0.0-0.7); #Monocytes 0.91 10x3/uL (0.11-0.59); #Neutrophils 11.75 10x3/uL (1.40-6.50); %Basophils 0.3 % (0.0-1.0); %Eosinophils 1.9 % (0.0-10.0); %Lymphocytes 9.0 % (21.0-51.0); %Monocytes 6.3 % (0.0-10.0); %Neutrophils 81.9 % (42.0-75.0); Hematocrit 35.0 % (42.0-52.0); Hemoglobin 12.3 g/dL (14.0-18.0); Mean Corpuscular Hemoglobin 31.0 pg (27.0-31.0); Mean Corpuscular Volume 88.2 fL (78.0-98.0); Platelet Count 143 10x3/uL (130-400); Red Blood Cell (RBC) Count 3.97 mill/uL (4.70-6.10); White Blood Cell (WBC) Count 14.37 10x3/uL (4.8-10.8)
[2025-01-06 04:17] LABS: ALT (SGPT) 17 U/L (Less than 45); AST (SGOT) 24 U/L (11-34); Albumin 2.9 g/dL (3.1-4.5); Alkaline Phosphatase 64 U/L (40-110); Anion Gap 9 mmol/L (10-20); BUN (Urea Nitrogen) 17 mg/dL (8.4-25.7); Bilirubin, Total 1.4 mg/dL (0.3-1.2); Calc. Creatinine Clearance 68 mL/min (70-130); Calcium 8.2 mg/dL (7.8-10.44); Carbon Dioxide 21 mmol/L (23-31); Chloride 109 mmol/L (98-107); Globulin 2.7 g/dL (2.4-3.5); Glucose 105 mg/dL (83-110); Potassium 3.5 mmol/L (3.5-5.1); Sodium 135 mmol/L (136-145)
[2025-01-06 08:40] VITALS: TEMP 98
== END 2025-01-06 12:45 | disposition home or self-care (01) | DRG 919 ==
LOC: ERS 17:21 → SDC/OP 21:04 → CCU 22:48
PROVIDERS: ADMIT Internal Medicine; ATTEND Internal Medicine
PROC: 0W3P8ZZ Control Bleeding in Gastrointestinal Tract, Via Natural or Artificial Opening Endoscopic (ICD-10-PCS; principal; 2025-01-04)
PROC: 0DCH8ZZ Extirpation of Matter from Cecum, Via Natural or Artificial Opening Endoscopic (ICD-10-PCS; 2025-01-04)
PROC: 0T9B70Z Drainage of Bladder with Drainage Device, Via Natural or Artificial Opening (ICD-10-PCS; 2025-01-04)
PROC: 3E03329 Introduction of Other Anti-infective into Peripheral Vein, Percutaneous Approach (ICD-10-PCS; 2025-01-05)
PROC: 30233L1 Transfusion of Nonautologous Fresh Plasma into Peripheral Vein, Percutaneous Approach (ICD-10-PCS; 2025-01-05)
PROC: 30233N1 Transfusion of Nonautologous Red Blood Cells into Peripheral Vein, Percutaneous Approach (ICD-10-PCS; 2025-01-05)
PROC: 30233K1 Transfusion of Nonautologous Frozen Plasma into Peripheral Vein, Percutaneous Approach (ICD-10-PCS; 2025-01-05)
DX: K91.840 Postprocedural hemorrhage of a digestive system organ or structure following a digestive system procedure (principal); R57.8 Other shock; K62.5 Hemorrhage of anus and rectum; I50.22 Chronic systolic (congestive) heart failure; I13.0 Hypertensive heart and chronic kidney disease with heart failure and stage 1 through stage 4 chronic kidney disease, or unspecified chronic kidney disease; E87.6 Hypokalemia; K21.9 Gastro-esophageal reflux disease without esophagitis; I25.10 Atherosclerotic heart disease of native coronary artery without angina pectoris; N40.0 Benign prostatic hyperplasia without lower urinary tract symptoms; N18.9 Chronic kidney disease, unspecified; E78.5 Hyperlipidemia, unspecified; E80.6 Other disorders of bilirubin metabolism; Z95.1 Presence of aortocoronary bypass graft; Z88.0 Allergy status to penicillin; Z98.890 Other specified postprocedural states; Z79.82 Long term (current) use of aspirin; Z79.899 Other long term (current) drug therapy; Z95.810 Presence of automatic (implantable) cardiac defibrillator; R50.9 Fever, unspecified; D72.829 Elevated white blood cell count, unspecified; K64.4 Residual hemorrhoidal skin tags
CPT/HCPCS: 36415; 36430; 74177; 80053; 81001; 85025; 85049; 85300; 85362; 85384; 85610; 85730; 86850; 86900; 86901; 87040; 87086; 87186; 96361; 96365; 96374; J0165; J0696; J2405; J2470; P9016; P9059; Q9967